=== PATIENT | male | born 1955 | race Caucasian/White ===

== ENCOUNTER 2021-08-05 08:20 | Outpatient (CLI) | payer MEDICAID, SELFPAY ==
--- NOTE | 2021-08-05 08:25 | USCV_ITS ---
Fredrick Nathan Age: 65 Gender: M : 1955 Exam Date: 08/05/2021 08:53 Ordering Phys: Keyla Baldwin Technologist: Hardik Navarro [place] [facility] [place]ication: dyspnea on exertion/ bilateral lower extremity edema. BP: 142 / 100 HR: 116 Rhythm: Sinus Technical Quality: Adequate MEASUREMENTS (Male / Female) Normal Values 2D ECHO LV Diastolic Diameter PLAX 4.2 cm 4.2 - 5.9 / 3.9 - 5.3 cm LV Systolic Diameter PLAX 3.9 cm IVS Diastolic Thickness 0.7 cm 0.6 - 1.0 / 0.6 - 0.9 cm IVS Systolic Thickness 0.8 cm LVPW Diastolic Thickness 2.0 cm 0.6 - 1.0 / 0.6 - 0.9 cm LVPW Systolic Thickness 1.9 cm LVOT Diameter 2.0 cm LV Ejection Fraction 2D Teich 14.2 % LV Ejection Fraction MOD 2C 11.6 % LV Ejection Fraction 2C AL 15.6 % LA Diameter 3.1 cm LA Width 3.1 cm LA Height 4.7 cm RA Width 5.2 cm RA Height 4.4 cm Aorta at Sinotubular Diameter 2.3 cm M-MODE Aortic Annulus Diameter 2.7 cm LA Ao Ratio MM 1.2 DOPPLER AV Peak Velocity 129.0 cm/s LVOT Peak Velocity 79.3 cm/s AV Area Cont Eq vti 1.7 cm squared AV Area Cont Eq pk 2.0 cm squared TR Peak Velocity 393.4 cm/s TR Peak Gradient 61.9 mmHg TR Mean Velocity 291.7 cm/s TR Mean Gradient 37.8 mmHg TR Velocity Time Integral 116.7 cm Right Atrial Pressure 3.0 mmHg Pulmonary Artery Systolic Pressu 64.9 mmHg RV Acceleration Time 0.1 s RV Ejection Time 0.2 s RV AcT/ET 0.3 FINDINGS Left Ventricle Diffuse hypokinesia of the left ventricle with ejection fraction around 15% Right Ventricle Moderately dilated left ventricle with moderately depressed ejection fraction Right Atrium Mildly increased right atrial size. Left Atrium Normal left atrial size. Mitral Valve Thickened mitral valve. Trace mitral valve regurgitation. Aortic Valve Thickened aortic valve. Trace aortic valve regurgitation. Tricuspid Valve Thickened tricuspid annulus.mild tricuspid valve regurgitation. Pulmonary hypertension with an estimated pulmonary artery peak systolic pressure of 62 mmHg Pulmonic Valve Trace pulmonary valve regurgitation. Pericardium No pericardial effusion. Aorta Normal aortic annulus size. CONCLUSIONS Diffuse hypokinesia of the left ventricle with ejection fraction around 15%. Moderately dilated left ventricle with moderately depressed ejection fraction. Mildly increased right atrial size. Thickened mitral valve. Trace mitral valve regurgitation. Thickened aortic valve. Trace aortic valve regurgitation. Thickened tricuspid annulus. Mild tricuspid valve regurgitation. Pulmonary hypertension with an estimated pulmonary artery peak systolic pressure of 62 mmHg. Trace pulmonary valve regurgitation. No previous study is available for comparison. Keyla Baldwin's office will be informed about the finding Dr Philip Gutiérrez MD [facility] (Electronically Signed) Final Date: 06 August 2021 07:07 S
== END 2021-08-05 08:21 | disposition home or self-care (01) ==
LOC: RAD 08:23
PROVIDERS: PCP Family Medicine; Visit Provider Registered Nurse
DX: R60.0 Localized edema (principal); R06.09 Other forms of dyspnea; I08.3 Combined rheumatic disorders of mitral, aortic and tricuspid valves; I27.20 Pulmonary hypertension, unspecified
CPT/HCPCS: 93306

== ENCOUNTER → 2023-05-27 13:05 | Outpatient (BNVA) | payer MEDICARE, MEDICAID, SELFPAY | PROVIDERS: PCP Family Medicine; Visit Provider Surgery | DX: Z95.828 Presence of other vascular implants and grafts (principal) | CPT/HCPCS: 99204 ==

== ENCOUNTER 2023-06-01 10:19 | Day surgery (SDC) | payer MEDICARE, MEDICAID, SELFPAY ==
[2023-06-01 10:34] VITALS: BP 110/71; PULSE 125; RESP 20; TEMP 36.4; O2SAT 90; BMI 21.9
--- NOTE | 2023-06-01 10:42 | SC_ITS ---
WS: [id number] C-ARM RADIOGRAPHS CHEST; 2 IMAGES HISTORY: surgery COMPARISON: None available. Intraoperative imaging during Mediport placement RIGHT IJ. IMPRESSION: Intraoperative imaging during Mediport placement.
[2023-06-01] MEDS: sodium chloride 0.9% 1,000 ML 30 ML IV (10:48)
--- NOTE | 2023-06-01 10:48 | P.HPUD_ITS ---
Surgery/Procedure H&P Update DATE OF PROCEDURE: June 01, 2023 DATE H&P PERFORMED: 05/27/23 H&P UPDATE INFORMATION: I have reviewed H&P completed within last 30 days, I have examined patient prior to procedure, No changes to prior documentation and H&P is in [facility] EMR on date indicated PREOP DIAGNOSIS: Lung Cancer PLANNED PROCEDURE: Operation Date: 06/01/23 12:00 Proposed Procedures p [id number] port placement C34.90(Not Applicable) - Cortez Beltrán MD
--- NOTE | 2023-06-01 10:57 | ECG_ITS ---
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 Measurements Intervals [place] Rate: 124 P: 94 [place]: 228 QRS: 117 QRSD: 181 T: 58 QT: 338 QTc: 487 Interpretive Statements SINUS TACHYCARDIA WITH FIRST DEGREE AV BLOCK RIGHT BUNDLE BRANCH BLOCK [120+ ms QRS DURATION, UPRIGHT V1, 40+ ms S IN I/aVL/V4/V5/V6] Nonspecific ST changes No previous ECG available for comparison Electronically Signed On 06-01-2023 14:31:00 SCRIPT EDITOR by Rigo Chen M.D. [id number]
--- NOTE | 2023-06-01 11:20 | ANES.PREANE2 ---
Pre-Anesthetic Assessment Height/Weight: Height 1.73 m Weight 65.317 kg Temp Pulse Resp BP Pulse Ox O2 Del Method O2 Flow Rate 97.5 F L 125 H 20 H 110/71 90 Nasal Cannula 3 06/01/23 10:34 06/01/23 10:34 06/01/23 10:34 06/01/23 10:34 06/01/23 10:34 06/01/23 10:34 06/01/23 10:34 Preop Diagnosis: Lung Cancer Operation Date: 06/01/23 12:00 Proposed Procedures p [id number] port placement C34.90(Not Applicable) - Cortez Beltrán MD Familial anesthetic complications: none Was Beta Zurdo taken within 24 hours: Yes Was Clonidine taken within 24 hours: N/A Last intake: Intake Last Liquid Date 05/31/23 Last Liquid Time 21:00 Last Solid Date 05/31/23 Last Solid Time 21:00 Social Tobacco and No alcohol Exam alert and oriented x 3 Tachy, RBBB Airway Submandibular: within normal limits Cervical ROM: within normal limits Mallampati: Class II Dentition: false Pulmonary Chronic Obstructive Pulmonary Disease Lung CA, Home O2 3L CV/HEM Coronary Artery Disease, Congestive Heart Failure (EF 15%), Hypertension (PHTN) and Murmur CONCLUSIONS ?Diffuse hypokinesia of the left ventricle with ejection fraction ?around 15%. ?Moderately dilated left ventricle with moderately depressed ?ejection fraction. ?Mildly increased right atrial size. ?Thickened mitral valve. Trace mitral valve regurgitation. ?Thickened aortic valve. Trace aortic valve regurgitation. ?Thickened tricuspid annulus. ?Mild tricuspid valve regurgitation.? Pulmonary hypertension with ?an estimated pulmonary artery peak systolic pressure of 62 mmHg. ?Trace pulmonary valve regurgitation. ?No previous study is available for comparison. ?Keyla Baldwin's office will be informed about the finding ?Dr Philip Gutiérrez MD [facility] ?(Electronically Signed) ?Final Date:? ? ? 06 August 2021 GI Gastroesophageal Reflux Disease Metabolic Hyperlipidemia Anesthetic Plan ASA status: 4 Anesthesia: MAC Medications/Allergies Home Medications Medication Instructions Recorded Confirmed Last Taken Type albuterol sulfate 2.5 mg/3 mL 2.5 mg inhalation Q4H PRN Wheezing 08/12/21 06/01/23 05/31/23 History (0.083 %) solution for nebulization furosemide 20 mg tablet (Lasix) 20 mg PO DAILY 08/12/21 06/01/23 05/31/23 History metoprolol succinate 25 mg 12.5 mg PO DAILY #15 tabs 08/12/21 06/01/23 06/01/23 Rx tablet,extended release 24 hr sildenafil 100 mg tablet (Viagra) 100 mg PO DAILY PRN sexual 08/12/21 06/01/23 Unknown History dysfunction sacubitril 24 mg-valsartan 26 mg 1 tab PO BID #60 tabs 02/19/22 06/01/23 05/31/23 Rx tablet (Entresto) apixaban 5 mg tablet (Eliquis) 5 mg PO BID 05/21/23 05/31/23 05/29/23 History atorvastatin 40 mg tablet 40 mg PO DAILY 05/21/23 06/01/23 05/31/23 History empagliflozin 10 mg tablet 10 mg PO DAILY 05/21/23 06/01/23 05/31/23 History (Jardiance) fluticasone fur. 100 mcg-umeclid 1 inh inhalation DAILY 05/21/23 06/01/23 05/31/23 History 62.5 mcg-vilant 25 mcg inhalat.powder (Trelegy Ellipta) omeprazole 20 mg capsule,delayed 20 mg PO DAILY 05/21/23 06/01/23 05/31/23 History release lorazepam 1 mg tablet 0.5 - 1 mg PO Q6H PRN Severe 05/31/23 06/01/23 05/31/23 Rx Nausea #30 tabs prochlorperazine maleate 10 mg 10 mg PO Q4H PRN Mild Nausea #30 05/31/23 06/01/23 05/31/23 Rx tablet (Compazine) tabs Allergies Allergy/AdvReac Type Severity Reaction Status Date / Time codeine Allergy Unknown Unknown Verified 05/31/23 14:47 penicillin G Allergy Unknown unknown Verified 05/31/23 14:47 Current Medications Generic Name Dose Route Start Last Admin Trade Name Freq PRN Reason Stop Dose Admin Sodium Chloride 1,000 mls @ 30 mls/hr 06/01/23 10:30 06/01/23 10:48 Sodium Chloride 0.9% IV 06/02/23 10:29 30 mls/hr .Q24H MONTY Administration PFSH Anesthesia Medical History CHF (congestive heart failure), NYHA class III COPD (chronic obstructive pulmonary disease) Emphysema lung Erectile dysfunction Pulmonary hypertension Squamous cell carcinoma of lung Surgical History S/P hip replacement Social History Smoking and tobacco/nicotine status: former use of tobacco/nicotine Quit status (tobacco/nicotine): has quit using Year quit tobacco: Former quit date comment: smoked 20-30 years Alcohol intake: current Alcohol intake frequency: 0-2 Drinks per Day Alcohol type: hard liquor Substance/Drug Use: current Substance/Drug use frequency: few times a week Data Anesthesia Cardiac Studies: Echocardiogram 08/05/21
[2023-06-01] MEDS: HYDROmorphone 1 mg/mL INJ 1 mL 0.5 MG IVP (11:46)
[2023-06-01] MEDS: vancomycin 1,000 MG in sodium chloride 0.9% 250 ML 250 MG IV (12:20)
[2023-06-01] MEDS: lidocaine-epi 2% 20 mL INJ INJECTION (12:52)
[2023-06-01] MEDS: heparin, porcine 1,000 unit/mL INJ 10 mL 6000 UNIT IRRIGATION (12:53)
--- NOTE | 2023-06-01 13:19 | PM.OP ---
Operative Report Date of procedure: June 01, 2023 Pre-op diagnosis: Lung cancer Post-op diagnosis: Same Procedure done: Insertion of right IJ Port-A-Cath Implants: Bard Port-A-Cath Surgeon: Cortez Beltrán MD Dot Compliance Coordinator: DELMAR OR Staff Estimated blood loss: 10 Complications: None Findings: Normal vascular anatomy Brief History: 67-year-old male with lung cancer who presents for Port-A-Cath placement for initiation of chemotherapy. After discussion of the risk and benefits as documented in my preop note we decided to proceed with Port-A-Cath placement. Procedure: Patient was brought into the OR, he was placed in the supine position, sedation was given. The neck and upper chest was prepped and draped in the usual sterile fashion. A timeout was conducted. The right IJ vein was identified with ultrasound, local anesthesia was infiltrated around the vein, I then proceeded to cannulate the vein with ultrasound guidance, the needle tip was seen entering the vein and immediate return of blood was noted. A guidewire was advanced at needle was removed, the guidewire position was confirmed with ultrasound and also with fluoroscopy. The wire was then clamped to the drapes and my attention was placed on the chest. Local anesthesia: Manager Of Creative Services on the upper chest and also on an area connecting the right upper chest to the right neck wire insertion site. At 3 cm incision was made in the right upper chest and was deepened to the subcutaneous tissue, electrocautery was then used to create a subcutaneous pocket above the level of the pectoralis fascia. I then proceeded to create a tunnel from the chest wound to the neck using a hemostat. At the level of the catheter insertion site on the neck I proceeded to create a 5 mm incision and deepened this incision to allow for easy passage of the dilator. I then verified hemostasis was achieved. Placed the Port-A-Cath port in the pocket and tunneled the catheter to the neck using the provided tunneler. I then proceeded to advance a peel-off sheath over the wire under direct fluoroscopy guidance, the wire and introducer were removed leaving the peel off sheath. the catheter was cut to lenght. I then advanced the catheter through the peel off sheat and removed the sheath leaving the catheter in place. Fluoroscopy confirmed adequate positioning of the catheter. I accessed the catheter and obtained adequate blood return, I then flushed with the catheter with a week heparin mix and then hep-locked the catheter. I then proceeded to fix the port to the pectoralis fascia with a #3-0 Vicryl, the wound was closed in layers using #3-0 Vicryl for the subcutaneous tissue and #4 Monocryl for the skin, Dermabond was applied. 1 final fluoroscopic image was obtained to ensure adequate position and after we finished closing. At the end of the procedure all counts were correct, the patient tolerated well the procedure and transferred to the PACU in stable condition.
[2023-06-01 13:20] VITALS: BP 148/108; PULSE 114; RESP 18; TEMP 36.4; O2SAT 99
[2023-06-01 13:30] VITALS: BP 141/106; PULSE 114; RESP 18; O2SAT 98
[2023-06-01 13:35] VITALS: BP 132/112; PULSE 116; RESP 18; O2SAT 98
--- NOTE | 2023-06-01 13:44 | ANE.PACU2 ---
Inpatient post-anesthesia follow up: Airway intact: Yes Vital signs: Temperature 97.6 F Pulse Rate 116 Respiratory Rate 18 Blood Pressure 132/112 Pulse Oximetry 98 Oxygen Delivery Me thod Simple Mask Oxygen Flow Rate 6 Fraction of Inspir ed Oxygen Hydration adequate: Yes Nausea and vomiting: No Pain level: 2 Mental status: Baseline
[2023-06-01 13:45] VITALS: BP 161/103; PULSE 119; RESP 18; TEMP 36.4; O2SAT 92
[2023-06-01 14:05] VITALS: BP 155/92; PULSE 121; RESP 18; O2SAT 91
[2023-06-01 14:30] LABS: Glucose Point of Care 107 mg/dL (70-110)
== END 2023-06-01 14:36 | disposition home or self-care (01) ==
PROVIDERS: PCP Family Medicine; Visit Provider Surgery
PROC: (CPT 36561; principal; 2023-06-01 12:00)
DX: C18.9 Malignant neoplasm of colon, unspecified (principal); J44.9 Chronic obstructive pulmonary disease, unspecified; Z99.81 Dependence on supplemental oxygen; I25.10 Atherosclerotic heart disease of native coronary artery without angina pectoris; I11.0 Hypertensive heart disease with heart failure; I50.9 Heart failure, unspecified; K21.9 Gastro-esophageal reflux disease without esophagitis; E78.5 Hyperlipidemia, unspecified; Z87.891 Personal history of nicotine dependence
CPT/HCPCS: 36561; 36416; 76000; 77001; 82962; 93005; 93010; C1788; J1170; J1644; J2371; J2704; J3010; J3370; J7030; J7050

== ENCOUNTER 2023-06-09 10:59 | Oncology outpatient (recurring) (ONCR) | payer MEDICARE, MEDICAID, SELFPAY ==
[2023-05-21 12:29] LABS: Basophils % 0.5 %; Eosinophils # 0.1 10^3/uL (0.0-0.8); Eosinophils % 1.3 %; Hematocrit 49.5 % (37-53); Lymphocytes # 1.5 10^3/uL (0.8-4.8); Lymphocytes % 18.9 %; Mean Corpuscular HGB Conc 31.5 g/dL (30-55); Mean Corpuscular Hemoglobin 31.5 pg (27-33); Mean Corpuscular Volume 99.8 fl (82-101); Mean Platelet Volume 12.5 fL (7.4-10.4); Monocytes # 0.9 10^3/uL (0.2-0.9); Monocytes % 11.7 %; Neutrophils # 5.22 10^3/uL (1.8-7.7); Neutrophils % 67.3 %; Nucleated Red Blood Cells % 0 %; Platelet Count 144 10^3/cmm (157-399); Red Blood Count 4.96 10^6/uL (3.85-5.65); Red Cell Distribution Width 13.2 % (12.1-15.1); White Blood Count 7.76 10^3/uL (3.29-11.43)
--- NOTE | 2023-06-02 10:27 | ONCRAD TMN_ITS ---
Radiation Oncology Weekly Treatment Management Patient: Fredrick Nathan MR#: [id number] : 1955> Attending Physician: Pavan Poole Date of Service: 06/02/2023 Referring Physician(s) : Compa Jack MD Diagnosis: Lung, right, squamous cell carcinoma, stage T2N2M0 Radiotherapy to date: Course: Lung 2022, Treatment Site: RT Lung, Ref. ID: [id number], Energy: 6X, Dose/Fx (cGy): 200, #Fx: , Dose Correction (cGy): 0, Total Dose (cGy): 600, Start Date: 05/31/2023, Elapsed Days: 2 Reason for visit: The patient is being seen today as part of their regularly scheduled weekly on treatment visits to assess for acute toxicities from radiotherapy. Review of Systems: He continues on O2 at 3 L/min 24 hours a day. He is tolerating that well and it relieves his dyspnea. He has no troublesome cough, hemoptysis, or sputum production. His appetite is good. He has no unusual pain. Vital Signs: Performed on 06/02/2023 8:41 AM BMI - 22.503 kg/m2, Height - 68 in, Weight - 148 lbs, Temperature - 96.4 f, Pulse - 81 /min, Respiration - 18 /min, O2 Sat - 83 % (low), Pain - 0, Fatigue - 0 and BP - 86/ 55 mm(hg)(low). Physical Exam: Alert, oriented, no distress. No cervical or supraclavicular lymphadenopathy. Lungs have greatly diminished breath sounds bilaterally. No Rales, rhonchi, or wheezes. Heart rhythm regular. Imaging: Radiation therapy imaging related to accurate target localization (i.e. KV, MV and CBCT) was reviewed. Appropriate changes, if any, were made to ensure treatment accuracy. Plan: Continue treatment per plan. Chemotherapy begins Wednesday. Signed by: Pavan Poole 06/02/2023 10:26:28 AM
[2023-06-07 07:29] VITALS: BP 111/75; PULSE 126; RESP 20; TEMP 36.2; O2SAT 83
[2023-06-07 07:46] LABS: Basophils % 0.7 %; Eosinophils # 0.1 10^3/uL (0.0-0.8); Eosinophils % 1.5 %; Hematocrit 47.1 % (37-53); Lymphocytes # 1.3 10^3/uL (0.8-4.8); Lymphocytes % 20.7 %; Mean Corpuscular HGB Conc 29.7 g/dL (30-55); Mean Corpuscular Hemoglobin 31.4 pg (27-33); Mean Corpuscular Volume 105.6 fl (82-101); Mean Platelet Volume 11.9 fL (7.4-10.4); Monocytes # 0.7 10^3/uL (0.2-0.9); Monocytes % 12.1 %; Neutrophils # 3.98 10^3/uL (1.8-7.7); Neutrophils % 64.7 %; Nucleated Red Blood Cells % 0 %; Platelet Count 125 10^3/cmm (157-399); Red Blood Count 4.46 10^6/uL (3.85-5.65); Red Cell Distribution Width 12.9 % (12.1-15.1); White Blood Count 6.14 10^3/uL (3.29-11.43)
[2023-06-07 08:06] LABS: Alanine Aminotransferase 21 U/L (0-41); Albumin Level 3.7 g/dL (3.5-5.2); Alkaline Phosphatase 77 U/L (40-130); Anion Gap 6.7 (5-19); Aspartate Amino Transferase 24 U/L (0-40); Blood Urea Nitrogen 23 mg/dL (8-23); Calcium 9.6 mg/dL (8.5-10.5); Chloride 94 mmol/L (98-107); Globulin 2.7 g/dL (1.3-4.6); Glomerular Filtration Rate 84.4 mL/min (90-130); Glucose 142 mg/dL (65-115); Osmolality Calculated 294 mOsm/kg (285-295); Potassium 4.7 mmol/L (3.5-5.1); Sodium 139 mmol/L (136-145); Total Bilirubin 0.3 mg/dL (0.15-1.2); Total Protein 6.4 g/dL (6.6-8.7)
[2023-06-07 08:27] LABS: Slide Review Slide Review Perform
[2023-06-07 08:41] LABS: Carbon Dioxide 43 mmol/L (22-29)
[2023-06-07] MEDS: sodium chloride 0.9% 250 ML 75 ML IV (10:03)
[2023-06-07] MEDS: acetaminophen 325 mg Tablet 650 MG PO (10:05)
[2023-06-07] MEDS: diphenhydrAMINE 50 mg/mL SDV 1mL 25 MG IVP (10:05)
[2023-06-07] MEDS: famotidine 20 mg/2 mL INJ IVP (10:08)
[2023-06-07] MEDS: palonosetron 0.25 mg/5 mL SDV IVP (10:17)
[2023-06-07] MEDS: dexamethasone 20 MG in sodium chloride 0.9% 50 ML 188 MG IV (10:17)
[2023-06-07] MEDS: PACLitaxeL 90 MG in sodium chloride 0.9%(non-DEHP) 250 ML 265 MG IV (10:44)
[2023-06-07] MEDS: CARBOplatin 210 MG in sodium chloride 0.9% 500 ML 521 MG IV (12:10)
[2023-06-07 14:58] VITALS: BP 97/62; PULSE 121; TEMP 36.5; O2SAT 82
--- NOTE | 2023-06-08 11:36 | ONCRAD TMN_ITS ---
Radiation Oncology Weekly Treatment Management Patient: Fredrick Nathan MR#: [id number] : 1955 Attending Physician: Thee De Santiago Date of Service: 06/08/2023 Referring Physician(s) : Compa Jack MD Diagnosis: Lung, right, squamous cell carcinoma, stage T2N0M0 Radiotherapy to date: Course: Lung 2022, Treatment Site: RT Lung, Ref. ID: [id number], Energy: 6X, Dose/Fx (cGy): 200, #Fx: , Dose Correction (cGy): 0, Total Dose (cGy): 1,000, Start Date: 05/31/2023, Elapsed Days: 8 Reason for visit: The patient is being seen today as part of their regularly scheduled weekly on treatment visits to assess for acute toxicities from radiotherapy. Review of Systems: Patient continues on O2 24 hours daily. He denies worsening shortness of breath, cough, hemoptysis, or sputum production. His appetite remains good. Vital Signs: Performed on 06/08/2023 11:07 AM BMI - 23.385 kg/m2 (high), Height - 68 in, Weight - 153.8 lbs, Temperature - 97.1 f, Pulse - 113 /min (high), Respiration - 18 /min, O2 Sat - 96 %, Pain - 0, Fatigue - 0 and BP - 101/ 64 mm(hg)(/low). Physical Exam: Alert and oriented male appearing his stated age. Oxygen by nasal cannula. Patient ambulatory. Imaging: Radiation therapy imaging related to accurate target localization (i.e. KV, MV and CBCT) was reviewed. Appropriate changes, if any, were made to ensure treatment accuracy. Plan: Continue prescribed treatment. Patient is receiving concurrent chemotherapy. He has been instructed to notify us if he develops any changes in his breathing, develops fevers, chills, or changes in his sputum production. Signed by: Thee De Santiago 06/08/2023 11:34:54 AM
== END 2023-06-09 23:59 | disposition home or self-care (01) ==
PROVIDERS: Internal Medicine; PCP Family Medicine; Visit Provider Radiology Radiation Oncology
DX: Z51.0 Encounter for antineoplastic radiation therapy (principal); C34.91 Malignant neoplasm of unspecified part of right bronchus or lung
CPT/HCPCS: 36415; 77300; 77301; 77334; 77338; 77386; 77417; 77470; 80053; 85025; 96367; 96375; 96413; 96417; 99024; 99205; 99215; J1100; J1200; J1642; J2469; J3490; J7040; J7050; J9045; J9267

== ENCOUNTER 2023-06-10 11:04 | Oncology outpatient (recurring) (ONCR) | payer MEDICARE, MEDICAID, SELFPAY | END 2023-06-10 23:59 | disposition home or self-care (01) | LOC: ONCMED 11:05 | PROVIDERS: PCP Family Medicine; Visit Provider Radiology Radiation Oncology | DX: Z51.0 Encounter for antineoplastic radiation therapy (principal); C34.90 Malignant neoplasm of unspecified part of unspecified bronchus or lung; C34.91 Malignant neoplasm of unspecified part of right bronchus or lung; Z99.81 Dependence on supplemental oxygen; Z87.891 Personal history of nicotine dependence; I50.9 Heart failure, unspecified; J44.9 Chronic obstructive pulmonary disease, unspecified; Z79.899 Other long term (current) drug therapy | CPT/HCPCS: 77014; 77336; 77386 ==

== ENCOUNTER 2023-06-10 21:26 | Inpatient (IN) | payer MEDICARE, MEDICAID, SELFPAY ==
[2023-06-10] VITALS (7 sets, daily range): BP systolic 110–138; BP diastolic 70–84; PULSE 124–134; RESP 20–23; TEMP 36.7; O2SAT 88–96; BMI 20.9
--- NOTE | 2023-06-10 21:27 | XRR_ITS ---
PROCEDURE INFORMATION: Exam: XR Chest Exam date and time: 06/10/2023 9:44 PM Age: 67 years old Clinical indication: Shortness of breath; Additional info: SOB TECHNIQUE: Imaging protocol: Radiologic exam of the chest. Views: 1 view. COMPARISON: CT angio chest PE protcl [id number] 03/08/2023 12:24 AM FINDINGS: Tubes, catheters and devices: Right-sided Port-A-Cath. Lungs: See Heart/Mediastinum finding. Pleural spaces: Unremarkable. No pleural effusion. No pneumothorax. Heart/Mediastinum: Cardiomegaly and pulmonary vascular congestion. Bones/joints: Unremarkable. XR/XR chest 1V portable [id number] IMPRESSION: Cardiomegaly and pulmonary vascular congestion.
--- NOTE | 2023-06-10 21:30 | ECG_ITS ---
[facility] Test Date: 2023-06-10 Pat Name: Fredrick Nathan Department: Room: Gender: Male Receipt And Report Clerk: : 1955 Requested By: Mercedez Smith Order Number: [id number] Dilip MD: Norma Reeder M.D. Measurements Intervals [place] Rate: 129 P: 97 [place]: 148 QRS: 108 QRSD: 177 T: 37 QT: 329 QTc: 483 Interpretive Statements SINUS TACHYCARDIA INDETERMINATE AXIS RIGHT BUNDLE BRANCH BLOCK [120+ ms QRS DURATION, UPRIGHT V1, 40+ ms S IN I/aVL/V4/V5/V6] SEPTAL MYOCARDIAL INFARCTION , PROBABLY OLD [40+ ms Q WAVE IN V1/V2] Compared to ECG 06/01/2023 10:57:22 Indeterminate axis now present Myocardial infarct finding now present First degree AV block no longer present ST (T wave) deviation no longer present Electronically Signed On 06-12-2023 6:07:59 AUTOMATIC NAILING MACHINE FEEDER by Norma Reeder M.D. [id number]
--- NOTE | 2023-06-10 21:32 | W.ED.CHESTPA ---
HPI - Chest Pain General: Chief Complaint: Chest Pain Stated Complaint: Chest Pain Time Seen by Provider: 06/10/23 21:29 Source: patient and EMS Mode of arrival: EMS Limitations: no limitations History of Present Illness: 67-year-old male who has a history of COPD CHF along with lung cancer states that tonight he started having some chest pain is also had some shortness of breath patient was hypoxic here on his home 2 L oxygen had to turn his oxygen up here states he took a nitro and he is currently pain-free denies any fevers he had his first radiation treatment yesterday. Associated symptoms: Reports dyspnea; Deny abdominal pain, fever(s), nausea or vomiting Review of Systems Const: Denies: fever(s), chills, body aches or change in appetite Eyes: Denies: blurry vision or eye discomfort ENMT: Denies: throat pain or dental pain Card: Reports: chest pain Resp: Reports: dyspnea GI: Denies: abdominal pain, nausea, vomiting or diarrhea : Denies: dysuria Musc: Denies: neck pain or back pain Skin/Breast: Denies: rash Neuro: Denies: headache(s) PFSH ED PFSH: Medical History Squamous cell carcinoma of lung Pulmonary hypertension Erectile dysfunction Emphysema lung COPD (chronic obstructive pulmonary disease) CHF (congestive heart failure), NYHA class III Surgical History S/P hip replacement Social History Smoking and tobacco/nicotine status: former use of tobacco/nicotine Quit status (tobacco/nicotine): has quit using Year quit tobacco: Former quit date comment: smoked 20-30 years Alcohol intake: current Alcohol intake frequency: 0-2 Drinks per Day Alcohol type: hard liquor Substance/Drug Use: current Substance/Drug use frequency: few times a week Physical Exam Const: COMMON NORMALS: patient oriented x3 HENMT: COMMON NORMALS: normocephalic and atraumatic HEAD & SCALP: normocephalic and atraumatic Eye: COMMON NORMALS: Equal, round and reactive pupils present and EOMs intact bilaterally PUPIL: Yes Equal, round and reactive pupils present Neck/C-Spine: COMMON NORMALS: full ROM and supple Chest: COMMONS NORMALS: normal inspection of the chest Resp: COMMON NORMALS: No retractions AUSCULTATION: wheezes Cardio: COMMON NORMALS: regular rhythm and No murmurs present (Cardio) RATE: tachycardic RHYTHM: regular rhythm GI: COMMON NORMALS: Normal to inspection, nondistended, normoactive bowel sounds present, Soft to palpation, non-tender and no masses PALPATION: Yes Soft to palpation Extremity: COMMON NORMALS: normal to inspection and full ROM Neuro: COMMON NORMALS: patient oriented x3, moves all extremities and no focal motor deficits Psych: COMMON NORMALS: mental status grossly normal, Normal thought process present and cooperative THOUGHT PROCESS: Normal thought process present Skin: COMMON NORMALS: no rashes or lesions noted and no wounds GENERAL SKIN EXAM: no rashes or lesions noted Course Vital Signs: Vital signs: Vital Signs Temperature 98.0 F 06/10/23 21:31 Pulse Rate 124 H 06/10/23 23:34 Respiratory Rate 20 H 06/10/23 23:34 Blood Pressure 138/84 06/10/23 23:34 Pulse Oximetry 89 L 06/10/23 23:34 Oxygen Delivery Me thod Nasal Cannula 06/10/23 23:34 Oxygen Flow Rate 5 06/10/23 23:34 Fraction of Inspir ed Oxygen 45 06/10/23 22:35 MDM - Chest Pain Medical Decision Making Patient presents here with chest pain along with shortness of breath he is found to be in hypercapnic respiratory failure likely from his COPD his chest pain is resolved here her troponin was normal EKG showed no acute changes patient placed on BiPAP admitted to cardiac stepdown unit Medical Records I reviewed the patient's medical records. Lab Data I reviewed the patient's lab results. 06/10/23 21:42 06/10/23 21:42 Radiology Impressions Chest X-Ray 06/10/23 21:27 IMPRESSION: Cardiomegaly and pulmonary vascular congestion. Chest CTA 06/10/23 22:12 IMPRESSION: 1. Negative for pulmonary embolus. 2. Bilateral adrenal hypertrophy suspected. 3. Small to moderate right pleural effusion. 4. Emphysematous changes. 5. Right hilar 6.8 cm somewhat confluent masslike airspace opacity with some associated airspace opacification in the right upper lobe, concerning for a malignant process, please correlate with history and consider tissue correlation. 6. Cardiomegaly. Laboratory Results WBC 5.69 10^3/uL (3.29-11.43) 06/10/23 21:42 RBC 4.39 10^6/uL (3.85-5.65) 06/10/23 21:42 Hgb 13.90 g/dL (11.27-16.99) 06/10/23 21:42 Hct 45.9 % (37-53) 06/10/23 21:42 MCV 104.6 fl (82-101) H 06/10/23 21:42 MCH 31.7 pg (27-33) 06/10/23 21:42 MCHC 30.3 g/dL (30-55) 06/10/23: RDW 13.0 % (12.1-15.1) 06/10/23 21:42 Plt Count 96 10^3/cmm (157-399) L 06/10/23 21:42 MPV 12.9 fL (7.4-10.4) H 06/10/23 21:42 Neut % (Auto) 77.1 % 06/10/23 21:42 Lymph % (Auto) 13.9 % 06/10/23 21:42 [place] % (Auto) 7.7 % 06/10/23 21:42 Eos % (Auto) 0.7 % 06/10/23 21:42 Baso % (Auto) 0.2 % 06/10/23:42 Neut # (Auto) 4.39 10^3/uL (1.8-7.7) 06/10/23 21:42 Lymph # (Auto) 0.8 10^3/uL (0.8-4.8) 06/10/23 21:42 [place] # (Auto) 0.4 10^3/uL (0.2-0.9) 06/10/23:42 Eos # (Auto) 0.0 10^3/uL (0.0-0.8) 06/10/23 21:42 Baso # (Auto) 0.0 10^3/uL (0.0-0.1) 06/10/23:42 Nucleated RBC % (auto) 0 % 06/10/23 21:42 Nucleated RBCs # 0.0 /100WBC 06/10/23 21:42 PT 16.00 SECONDS (12.1-14.9) H 06/10/23 21:42 INR 1.24 (0.8-1.2) H 06/10/23 21:42 D-Dimer 0.97 ug/mLFEU (0-0.59) H 06/10/23 21:42 Specimen Type Arterial 06/10/23 22:15 Sample Site Radial, right 06/10/23 22:15 ABG pH 7.29 (7.35-7.45) L 06/10/23 22:15 ABG pCO2 87.6 mmHg (35-45) H* 06/10/23 22:15 ABG pO2 64.9 mmHg (80.0-100.0) L 06/10/23 22:15 ABG HCO3 42.2 mmol/L (22-26) H 06/10/23 22:15 ABG Base Excess 11.7 mmol/L (-2.0-2.0) H 06/10/23 22:15 Fawad Test Pos 06/10/23 22:15 Hematocrit 41.3 % (42-52) L 06/10/23 22:15 O2 Delivery Device Nc 06/10/23 22:15 O2 Liters/Min 5.0 % 06/10/23 22:15 Cost Reduction Engineer ID [email or web address] 06/10/23 22:15 Sodium 138 mmol/L (136-145) 06/10/23 21:42 Potassium 5.7 mmol/L (3.5-5.1) H 06/10/23 21:42 Chloride 93 mmol/L (98-107) L 06/10/23 21:42 Carbon Dioxide 42 mmol/L (22-29) H* 06/10/23 21:42 Anion Gap 8.7 (5-19) 06/10/23 21:42 BUN 31 mg/dL (8-23) H 06/10/23 21:42 Creatinine 0.7 mg/dL (0.7-1.2) 06/10/23 21:42 GFR Calculation 112.8 mL/min (90-130) 06/10/23 21:42 Glucose 107 mg/dL (65-115) 06/10/23 21:42 Calculated Osmolality 293 mOsm/kg (285-295) 06/10/23 21:42 Calcium 9.4 mg/dL (8.5-10.5) 06/10/23 21:42 Total Bilirubin 0.3 mg/dL (0.15-1.2) 06/10/23 21:42 AST 19 U/L (0-40) 06/10/23 21:42 ALT 21 U/L (0-41) 06/10/23 21:42 Alkaline Phosphatase 66 U/L (40-130) 06/10/23 21:42 Troponin T Baseline 28 ng/L (0-15) H 06/10/23 21:42 NT-Pro-B Natriuret Pep 3287 pg/mL (0-125) H 06/10/23 21:42 Total Protein 6.3 g/dL (6.6-8.7) L 06/10/23 21:42 Albumin 4.0 g/dL (3.5-5.2) 06/10/23 21:42 Globulin 2.3 g/dL (1.3-4.6) 06/10/23 21:42 Procalcitonin 0.06 ng/mL (0-0.5) 06/10/23 21:42 All radiology interpretation(s) finalized by discharge EKG Data EKG 1: I personally reviewed and interpreted this EKG as follows: EKG interpretation date: 06/10/23 EKG interpretation time: 21:30 Interpretation: sinus tach hr [address] or t wave abnormalities qrs 177 qtc 405 Critical Care Time Critical Care Time: Critical Care Time: Yes Total Critical Care Time: 40 Attestation: The high probability of a clinically significant, sudden or life threatening deterioration of the patient's resp system(s) required my full and direct attention, intervention and personal management. The critical care time is as shown. This time is in addition to time spent performing any reported procedures but includes the following: [x] Data and vital sign review and interpretation [x] Patient assessment, examination and intervention [x] Documentation [x] Medication orders and management Discharge Plan Discharge Patient Disposition: Admitted As Inpatient Admit Provider: Citlali Dang Clinical Impression: COPD (chronic obstructive pulmonary disease), Chest pain, Acute respiratory failure with hypoxia and hypercapnia Condition: Stable Coding Level of Care Code ED Practicing Dermatologist for Chg Jaycee
[2023-06-10 21:50] LABS: Basophils % 0.2 %; Eosinophils % 0.7 %; Hematocrit 45.9 % (37-53); Lymphocytes # 0.8 10^3/uL (0.8-4.8); Lymphocytes % 13.9 %; Mean Corpuscular HGB Conc 30.3 g/dL (30-55); Mean Corpuscular Hemoglobin 31.7 pg (27-33); Mean Corpuscular Volume 104.6 fl (82-101); Mean Platelet Volume 12.9 fL (7.4-10.4); Monocytes # 0.4 10^3/uL (0.2-0.9); Monocytes % 7.7 %; Neutrophils # 4.39 10^3/uL (1.8-7.7); Neutrophils % 77.1 %; Nucleated Red Blood Cells % 0 %; Platelet Count 96 10^3/cmm (157-399); Red Blood Count 4.39 10^6/uL (3.85-5.65); White Blood Count 5.69 10^3/uL (3.29-11.43)
[2023-06-10] MEDS: ipratropium-albuterol 3 mL Neb INHALATION (21:53)
[2023-06-10] MEDS: methylPREDNISolone sod succ 125 mg/2 mL INJ IVP (21:55)
--- NOTE | 2023-06-10 21:55 | P.HP_ITS ---
Providers/Chief Complaint 2 Primary Care Provider: Delbert Webster Chief Complaint: Chest Pain History of Present Illness Fredrick Nathan is a 67 year old male with history of lung cancer, received chemotherapy on Wednesday and radiotherapy yesterday presented to hospital with chief complaint of chest pain. This chest pain started at rest around 3:30 PM, it was relieved with nitroglycerin, he is describing chest pain as pressure related sensation. He has history of COPD uses 3 L of oxygen at baseline. Does not smoke. 911 was called who brought him to the ER in the ER patient was diagnosed with A-fib RVR heart rate in 130s with normal hemodynamics he was requiring 5 to 6 L of oxygen, EKG did not show any acute infarct changes Patient was chest pain free at the time of my evaluation He has not noticed any fever, nausea, vomiting or worsening of shortness of breath Review of records reveals patient had history of left DVT he is on Eliquis, has skin cell cancer, history of congestive heart failure with reduced ejection fraction, pulmonary hypertension, Review of Systems 2 Const: Reports: chills Eyes: Denies: change in vision ENMT: Denies: throat pain Card: Reports: chest pain Resp: Reports: dyspnea GI: Denies: abdominal pain : Denies: flank pain Medications/Allergies Home Medications Medication Instructions Recorded Confirmed Last Taken Type albuterol sulfate 2.5 mg/3 mL 2.5 mg inhalation Q4H PRN Wheezing 08/12/21 06/07/23 05/31/23 History (0.083 %) solution for nebulization furosemide 20 mg tablet (Lasix) 20 mg PO DAILY 08/12/21 06/07/23 05/31/23 History metoprolol succinate 25 mg 12.5 mg (1/2 x 25 mg) PO DAILY #15 08/12/21 06/07/23 06/01/23 Rx tablet,extended release 24 hr tabs sildenafil 100 mg tablet (Viagra) 100 mg PO DAILY PRN sexual 08/12/21 06/07/23 Unknown History dysfunction sacubitril 24 mg-valsartan 26 mg 1 tab PO BID #60 tabs 02/19/22 06/07/23 05/31/23 Rx tablet (Entresto) apixaban 5 mg tablet (Eliquis) 5 mg PO BID 05/21/23 06/07/23 05/29/23 History atorvastatin 40 mg tablet 40 mg PO DAILY 05/21/23 06/07/23 05/31/23 History empagliflozin 10 mg tablet 10 mg PO DAILY 05/21/23 06/07/23 05/31/23 History (Jardiance) fluticasone fur. 100 mcg-umeclid 1 inh inhalation DAILY 05/21/23 06/07/23 05/31/23 History 62.5 mcg-vilant 25 mcg inhalat.powder (Trelegy Ellipta) omeprazole 20 mg capsule,delayed 20 mg PO DAILY 05/21/23 06/07/23 05/31/23 History release lorazepam 1 mg tablet 0.5 - 1 mg (0.5 - 1 x 1 mg) PO Q6H 05/31/23 06/07/23 05/31/23 Rx PRN Severe Nausea #30 tabs prochlorperazine maleate 10 mg 10 mg PO Q4H PRN Mild Nausea #30 05/31/23 06/07/23 05/31/23 Rx tablet (Compazine) tabs meloxicam 7.5 mg tablet 7.5 mg PO DAILY #7 tabs 06/01/23 06/07/23 Unknown Rx lidocaine-prilocaine 2.5 %-2.5 % 1 applic topical ONCE #30 grams 06/07/23 06/07/23 Unknown Rx topical cream oxygen mask #1 ea 06/07/23 06/07/23 Unknown Rx Allergies Allergy/AdvReac Type Severity Reaction Status Date / Time codeine Allergy Unknown Unknown Verified 06/07/23 08:38 penicillin G Allergy Unknown unknown Verified 06/07/23 08:38 PFSH Acute 2 PFSH: Medical History Squamous cell carcinoma of lung Pulmonary hypertension Erectile dysfunction Emphysema lung COPD (chronic obstructive pulmonary disease) CHF (congestive heart failure), NYHA class III Surgical History S/P hip replacement Social History Smoking and tobacco/nicotine status: former use of tobacco/nicotine Quit status (tobacco/nicotine): has quit using Year quit tobacco: Former quit date comment: smoked 20-30 years Alcohol intake: current Alcohol intake frequency: 0-2 Drinks per Day Alcohol type: hard liquor Substance/Drug Use: current Substance/Drug use frequency: few times a week Vitals/I&O/Wt Last Vital Signs Temp 98.0 F 06/10/23 21:31 Pulse 129 H 06/10/23 21:31 Resp 20 H 06/10/23 21:31 BP 110/72 06/10/23 21:31 Pulse Ox 88 L 06/10/23 21:31 O2 Flow Rate 5 06/10/23 21:31 Weight last 48 hrs Weight 64.41 kg Physical Exam 2 Narrative: Patient is chest pain-free at the time of evaluation Signs of heart failure present GCS 15 Nonfocal neuro exam Currently on 6 L A-fib RVR No audible stridor or wheezing Mild crackles positive Abdomen soft Pleasant and cooperative Nonfocal neuro exam Data 06/10/23 21:42 06/10/23 21:42 A&P Assessment and plan (1) Squamous cell carcinoma of lung: (2) Pulmonary hypertension: (3) Emphysema lung: (4) COPD (chronic obstructive pulmonary disease): (5) CHF (congestive heart failure), NYHA class III: (6) Unstable angina: Plan Unstable angina Serial troponin and EKG Chest pain-free at the time of my evaluation Patient is considered high risk considering EF of 15% with pulmonary hypertension He has dyspnea on exertion at baseline EKG did not show infarctive changes Acute S-CHF exacerbation Discontinue NSAIDs Clinical signs of fluid overload Continue diuresis Echo done in 2021 showed EF 15% with pulmonary hypertension Continue Lasix, changed to IV Not a candidate for LifeVest considering cancer A-fib RVR, new onset Patient is on subtherapeutic Eliquis dose We will receive AV luis miguel blocking agent, blood pressure stable Acute on chronic hypoxic hypercapnic respite failure: Start BiPAP Acute on chronic hypoxia related to CHF and underlying cancer Currently requiring 6 L, at baseline uses 3 L No active wheezing, mild crackles positive Mediport was placed recently 06/01, Mediport site does not look infected Full code Cardiac diet Use therapeutic anticoagulating agent as DVT prophylaxis and discontinue subtherapeutic Eliquis dose Attestations 2 Medical Necessity Statement*: More than 2 midnights anticipated Diagnoses Squamous cell carcinoma of lung C34.90 Pulmonary hypertension I27.20 Emphysema lung J43.9 COPD (chronic obstructive pulmonary disease) J44.9 CHF (congestive heart failure), NYHA class III I50.9 Unstable angina I20.0
[2023-06-10 22:05] LABS: INR 1.24 (0.8-1.2)
[2023-06-10 22:07] LABS: Slide Review Slide Review Perform
[2023-06-10 22:08] LABS: D Dimer 0.97 ug/mLFEU (0-0.59)
--- NOTE | 2023-06-10 22:12 | CTR_ITS ---
PROCEDURE INFORMATION: Exam: CTA Chest With Contrast Exam date and time: 06/10/2023 10:57 PM Age: 67 years old Clinical indication: Shortness of breath; Additional info: SOB TECHNIQUE: Imaging protocol: Computed tomographic angiography of the chest with contrast. Exam focused on the arteries. 3D rendering (Not supervised by radiologist): MIP and/or 3D reconstructed images were created by the technologist. Radiation optimization: All CT scans at this facility use at least one of these dose optimization techniques: automated exposure control; mA and/or kV adjustment per patient size (includes targeted exams where dose is matched to clinical indication); or iterative reconstruction. Contrast material: OMNI 350; Contrast volume: 75 ml; Contrast route: INTRAVENOUS (IV); REPORTING DATA: Count of CT and Cardiac NM exams in prior 12 months: This patient has received 3 known CTs and 0 known cardiac nuclear medicine studies in the 12 months prior to the current study. COMPARISON: CT angio chest PE protcl [id number] 03/08/2023 12:24 AM RADIATION DOSE METRICS: Total DLP (mGy-cm): 455.68 FINDINGS: Pulmonary arteries: Normal. No pulmonary emboli. Aorta: Unremarkable. No aortic aneurysm. No aortic dissection. Lungs: Emphysematous changes. Right hilar 6.8 cm somewhat confluent masslike airspace opacity with some associated airspace opacification in the right upper lobe, concerning for a malignant process, please correlate with history and consider tissue correlation. Pleural spaces: Small to moderate right pleural effusion. Heart: Cardiomegaly. Lymph nodes: Unremarkable. No enlarged lymph nodes. Adrenal glands: Bilateral adrenal hypertrophy suspected. Bones/joints: Unremarkable. No acute fracture. Soft tissues: Unremarkable. CT/CT angio chest PE protcl [id number] IMPRESSION: 1. Negative for pulmonary embolus. 2. Bilateral adrenal hypertrophy suspected. 3. Small to moderate right pleural effusion. 4. Emphysematous changes. 5. Right hilar 6.8 cm somewhat confluent masslike airspace opacity with some associated airspace opacification in the right upper lobe, concerning for a malignant process, please correlate with history and consider tissue correlation. 6. Cardiomegaly.
[2023-06-10 22:15] LABS: Troponin(5th) Baseline 28 ng/L (0-15)
[2023-06-10 22:22] LABS: ABG PH Result 7.29 (7.35-7.45); Arterial Blood Gas Hematocrit 41.3 % (42-52); Base Excess ABG 11.7 mmol/L (-2.0-2.0); Blood Gas Allen Test Pos; Blood Gas Sample Site Radial, right; Blood Gas Sample Type Arterial; HCO3 ABG 42.2 mmol/L (22-26); Oxygen Device NC; PO2 ABG 64.9 mmHg (80.0-100.0)
[2023-06-10 22:22] LABS: Alanine Aminotransferase 21 U/L (0-41); Alkaline Phosphatase 66 U/L (40-130); Anion Gap 8.7 (5-19); Aspartate Amino Transferase 19 U/L (0-40); Blood Urea Nitrogen 31 mg/dL (8-23); Calcium 9.4 mg/dL (8.5-10.5); Chloride 93 mmol/L (98-107); Globulin 2.3 g/dL (1.3-4.6); Glomerular Filtration Rate 112.8 mL/min (90-130); Glucose 107 mg/dL (65-115); NT Pro B Type Natriuretic Pept 3287 pg/mL (0-125); Osmolality Calculated 293 mOsm/kg (285-295); Potassium 5.7 mmol/L (3.5-5.1); Sodium 138 mmol/L (136-145); Total Bilirubin 0.3 mg/dL (0.15-1.2); Total Protein 6.3 g/dL (6.6-8.7)
[2023-06-10 22:24] LABS: Carbon Dioxide 42 mmol/L (22-29)
[2023-06-10 22:58] LABS: Procalcitonin 0.06 ng/mL (0-0.5)
[2023-06-10] MEDS: FUROsemide 10 mg/mL SDV 4mL 40 MG IVP (23:17)
[2023-06-10] MEDS: ondansetron 2 mg/ML SDV 2 mL 4 MG IVP (23:21)
[2023-06-10] MEDS: amiodarone 50 mg/mL SDV 3 mL 150 MG IVP (23:23)
--- NOTE | 2023-06-10 23:27 | ECG_ITS ---
[facility] Test Date: 2023-06-10 Pat Name: Fredrick Nathan Department: Room: 112 Gender: Male Colorist Photography: : 1955 Requested By: Mercedez Smith Order Number: [id number] Dilip MD: Ivan Alvarez M.D. Measurements Intervals [place] Rate: 129 P: 0 [place]: 0 QRS: 238 QRSD: 163 T: 53 QT: 331 QTc: 486 Interpretive Statements ATRIAL FLUTTER WITH RAPID VENTRICULAR RESPONSE INDETERMINATE AXIS RIGHT BUNDLE BRANCH BLOCK [120+ ms QRS DURATION, UPRIGHT V1, 40+ ms S IN I/aVL/V4/V5/V6] LEFT POSTERIOR FASCICULAR BLOCK [QRS AXIS > 109, INFERIOR Q] Compared to ECG 06/10/2023 21:30:59 Left posterior fascicular block now present Sinus tachycardia no longer present Myocardial infarct finding no longer present Electronically Signed On 06-14-2023 8:20:53 THERAPIST PHYSICAL by Ivan Alvarez M.D. [id number]
[2023-06-10] MEDS: iohexol 350 mg/mL 500 mL Btl (per mL) IV (23:39)
[2023-06-11] VITALS (20 sets, daily range): BP systolic 84–146; BP diastolic 64–85; PULSE 79–125; RESP 6–27; O2SAT 87–99; BMI 23.9
[2023-06-11 00:02] LABS: Troponin 5 2HR 32.19 ng/L (0-15); Troponin 5 2HR Delta 4.19 ABS# (0-10)
--- NOTE | 2023-06-11 00:58 | PC.NURSE ---
Waiting for pharmacy to verify ordered medications. ED meds fell off the pyxis and are not available.
[2023-06-11] MEDS: calcium gluconate 0.1 gm/mL 10% SDV 10mL 1 GM IVP (01:32)
[2023-06-11] MEDS: sodium polystyrene sulfonate 15 gm/60 mL Btl PO (01:32)
[2023-06-11] MEDS: morphine 4 mg/mL SDV 1 mL IVP (01:32)
[2023-06-11] MEDS: ondansetron 2 mg/ML SDV 2 mL 4 MG IVP (01:33)
--- NOTE | 2023-06-11 03:27 | ECG_ITS ---
[facility] Test Date: 2023-06-11 Pat Name: Fredrick Nathan Department: Room: 112 Gender: Male Mechanical Adjuster: : 1955 Requested By: Mercedez Smith Order Number: [id number] Dilip MD: Ivan Alvarez M.D. Measurements Intervals [place] Rate: 120 P: 186 TN: 237 QRS: 139 QRSD: 180 T: 17 QT: 352 QTc: 498 Interpretive Statements SINUS TACHYCARDIA WITH FIRST DEGREE AV BLOCK RIGHT AXIS DEVIATION [QRS AXIS > 100] RIGHT BUNDLE BRANCH BLOCK [120+ ms QRS DURATION, UPRIGHT V1, 40+ ms S IN I/aVL/V4/V5/V6] Compared to ECG 06/10/2023 23:16:17 First degree AV block now present Right-axis deviation now present Atrial flutter no longer present Indeterminate axis no longer present Left posterior fascicular block no longer present Electronically Signed On 06-14-2023 8:20:44 DESIGN TECHNOLOGY PROFESSOR by Ivan Alvarez M.D. [id number]
[2023-06-11 04:16] LABS: Basophils % 0.2 %; Lymphocytes # 0.1 10^3/uL (0.8-4.8); Lymphocytes % 1.5 %; Mean Corpuscular HGB Conc 30.4 g/dL (30-55); Mean Corpuscular Hemoglobin 31.4 pg (27-33); Mean Corpuscular Volume 103.3 fl (82-101); Mean Platelet Volume 13.3 fL (7.4-10.4); Monocytes # 0.1 10^3/uL (0.2-0.9); Monocytes % 1.2 %; Neutrophils # 5.88 10^3/uL (1.8-7.7); Neutrophils % 96.8 %; Nucleated Red Blood Cells % 0 %; Platelet Count 96 10^3/cmm (157-399); Red Blood Count 4.55 10^6/uL (3.85-5.65); Red Cell Distribution Width 13.1 % (12.1-15.1); White Blood Count 6.07 10^3/uL (3.29-11.43)
[2023-06-11 04:21] LABS: ABG PH Result 7.28 (7.35-7.45); Arterial Blood Gas Hematocrit 44.8 % (42-52); Blood Gas Allen Test Pos; Blood Gas Operator Identificat MONRO; Blood Gas Sample Site Radial, left; Blood Gas Sample Type Arterial; HCO3 ABG 43.2 mmol/L (22-26); Oxygen Device BIPAP; PO2 ABG 99.1 mmHg (80.0-100.0); PO2 FiO2 Ratio Arterial Blood 0
[2023-06-11 04:22] LABS: ABG PCO2 91.3 mmHg (35-45)
[2023-06-11] MEDS: ipratropium-albuterol 3 mL Neb INHALATION ×3 (04:30→19:57)
[2023-06-11 04:34] LABS: Troponin 5 6HR 30.25 ng/L (0-15); Troponin 5 6HR Delta 2.25 ng/L (0-12)
[2023-06-11 04:39] LABS: Anion Gap 12.3 (5-19); Blood Urea Nitrogen 29 mg/dL (8-23); Calcium 9.5 mg/dL (8.5-10.5); Carbon Dioxide 37 mmol/L (22-29); Chloride 92 mmol/L (98-107); Glomerular Filtration Rate 96.7 mL/min (90-130); Glucose 228 mg/dL (65-115); Magnesium 1.7 mg/dL (1.7-2.3); Osmolality Calculated 295 mOsm/kg (285-295); Phosphorus 3.9 mg/dL (2.5-4.5); Potassium 5.3 mmol/L (3.5-5.1); Sodium 136 mmol/L (136-145)
[2023-06-11] MEDS: dilTIAZem 5 mg/mL SDV 5 mL IVP (05:13)
[2023-06-11] MEDS: magnesium sulfate premix 1 GM/100 ML PIGGYBACK IV (05:14)
--- NOTE | 2023-06-11 05:47 | PC.NURSE ---
Informed Dr Dang of patient's labs this morning. Received instruction to transfer patient to ICU. Report called to DARIA Mcmahan.
--- NOTE | 2023-06-11 05:51 | PC.NURSE ---
Arrival to ICU 10: Pt arrived to ICU 10 @2582. Pt answers all orientation questions correctly. Pt appears to be extremely agitated, evidence by stating, get me a fucking god damed drink of water, shit , Ill sign the paper that says let me , and Ill be before you let me have a drink of fucking water . This RN explained in detail why the pt needs to keep the BiPAP mask on. Agitation increasing. Lyric RT aware. Charge nurse, DARIA Parks aware.
[2023-06-11 06:08] LABS: ABG PH Result 7.32 (7.35-7.45); Arterial Blood Gas Hematocrit 44.6 % (42-52); Base Excess ABG 12.9 mmol/L (-2.0-2.0); Blood Gas Allen Test Pos; Blood Gas Operator Identificat JB; Blood Gas Sample Site Radial, right; Blood Gas Sample Type Arterial; Carboxyhemoglobin 2.3 %THgb (0.4-20.1); HCO3 ABG 43.3 mmol/L (22-26); HGB O2 Sat 94.3 % (95-100); Ionized Calcium Level - ABG 1.3 mmol/L (1.1-1.4); Methemoglobin 0.8 % (0.4-1.5); Oxygen Device BIPAP; Oxygen Saturation ABG 97.3; PO2 ABG 83.8 mmHg (80.0-100.0); Potassium Level - ABG 5.3 mmol/L (3.5-5.0); Total Hemoglobin 14.6 g/dL (14-18)
[2023-06-11 06:09] LABS: Alveolar-Arterial Oxygen Gradi 17.4 mmHg (5-10); Blood Gas Tidal Volume 0.45; PO2 FiO2 Ratio Arterial Blood 0
[2023-06-11 06:22] LABS: ABG PCO2 84.3 mmHg (35-45)
[2023-06-11] MEDS: FUROsemide 10 mg/mL SDV 10mL 60 MG IVP (08:36)
[2023-06-11] MEDS: metoprolol tartrate 25 mg Tablet PO ×2 (08:37→21:24)
[2023-06-11] MEDS: sennosides-docusate Tablet 1 TAB PO (08:37)
[2023-06-11] MEDS: insulin lispro 100 unit/1 mL SUBCUT ×2 (08:37→17:03)
[2023-06-11] MEDS: methylPREDNISolone sod succ 40 mg SDV IVP ×2 (11:27→22:11)
[2023-06-11] MEDS: cefTRIAXone 1,000 MG in sodium chloride 0.9% (plus) 50 ML 100 MG IV (11:29)
[2023-06-11 11:41] LABS: Alanine Aminotransferase 20 U/L (0-41); Albumin Level 3.8 g/dL (3.5-5.2); Alkaline Phosphatase 62 U/L (40-130); Anion Gap 13.2 (5-19); Aspartate Amino Transferase 18 U/L (0-40); Blood Urea Nitrogen 28 mg/dL (8-23); Calcium 9.2 mg/dL (8.5-10.5); Carbon Dioxide 37 mmol/L (22-29); Chloride 92 mmol/L (98-107); Globulin 2.7 g/dL (1.3-4.6); Glomerular Filtration Rate 84.4 mL/min (90-130); Glucose 126 mg/dL (65-115); Osmolality Calculated 291 mOsm/kg (285-295); Potassium 5.2 mmol/L (3.5-5.1); Sodium 137 mmol/L (136-145); Total Bilirubin 0.3 mg/dL (0.15-1.2); Total Protein 6.5 g/dL (6.6-8.7)
[2023-06-11 12:26] LABS: Glucose Point of Care 99 mg/dL (70-110)
--- NOTE | 2023-06-11 14:30 | P.PN_ITS ---
Subjective 2 Subjective: Overnight labs and H&P reviewed. No acute interim events. Patient tolerated the BiPAP poorly, it made him feel claustrophobic. This morning he is off of the BiPAP. Currently saturating 97% on 3 L/min which is close to his baseline. He has converted into sinus rhythm at this time. Medications: Reviewed: Yes Vitals/I&O/Wt Last Vital Signs Temp 98.0 F 06/10/23 21:31 Pulse 91 06/11/23 13:59 Resp 18 06/11/23 13:59 BP 100/69 06/11/23 13:59 Pulse Ox 89 L 06/11/23 13:59 O2 Del Method Nasal Cannula 06/11/23 09:40 O2 Flow Rate 3 06/11/23 09:40 FiO2 45 06/11/23 04:33 06/10/23 06/11/23 06/11/23 22:59 06:59 14:59 Intake Total 295.259 / 295.259 530 / 530 Output Total 1650 / 1650 Balance -1354.741 / -1354.741 530 / 530 Weight last 48 hrs Weight 73.482 kg Weight 64.41 kg Physical Exam 2 Narrative: General: No acute distress, AO x3 HEENT: PERRLA, pupils bilaterally equal and reactive, pallors not present Chest: Normal vesicular breath sounds, no added sounds, equal good air entry bilaterally CVS: S1-S2 regular, no murmurs, no tachycardia, no gallops, no rubs Abdomen: Soft, nontender, no organomegaly, bowel sounds present Neuro: No focal deficits, no facial deformity, AO x3, power 5/5 in all limbs Urinary Catheter Management: [facility]: Cath Placed During This Visit: yes Reason for Continuing Indwelling Catheter: Accurate Measurement of Urinary Output in Critically Ill Patients Urinary Catheter Date of Insertion: 06/11/23 Urinary Catheter Time of Insertion: 03:13 Data 06/11/23 04:00 06/11/23 11:00 A&P Assessment and plan (1) Squamous cell carcinoma of lung: (2) Pulmonary hypertension: (3) Emphysema lung: (4) COPD (chronic obstructive pulmonary disease): (5) CHF (congestive heart failure), NYHA class III: Plan 67-year-old male with hypertension, hyperlipidemia, A-fib on Eliquis, history of lower extremity DVT, COPD chronically on 3 L/min nasal cannula, pulmonary hypertension, history of cardiomyopathy with last known EF of 15% from 2021. 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 He has had a poor daily functional status. Dyspnea with minimal activity since his cancer diagnosis. Has orthopnea at baseline. Usually wheelchair-bound due to dyspnea on exertion chronically. He has recently started chemotherapy with carboplatin paclitaxel LD on 06/07. He is also on concurrent radiation treatment. Patient presented overnight with chief complaints of chest pain, palpitations. He thought he was having a panic attack due to his chemotherapy. States he has been very nervous recently after his cancer diagnosis. He was found to have A-fib with RVR #A-fib with RVR Currently rate controlled He is on amiodarone infusion, will transition to oral amiodarone since patient is off BiPAP, respiratory status is stable at this time. DC full dose Lovenox, transition back to Eliquis 5 mg twice daily Troponins baseline at 28, 32 at 2 hours, 38 6 hours, no significant delta. Suspect mild elevation is related to known cardiomyopathy and type II demand supply mismatch. Denies any current chest pain. check echo to assess for interval change- last knoen EF 15% from 2021, severe pulm HTN # hypercapneic respiratory failure, related to COPD, CHF and lung cancer # COPD exacerbation ABG overnight with evidence of hypercapnic respiratory failure. Patient remained on BiPAP with AVAPS setting through the night. This morning he was noncompliant, reported claustrophobia and took off the BiPAP. Patient states he is not normally on BiPAP at home and usually just uses 3 L/min supplemental O2. Hypercapnia together with elevated bicarb suggest longstanding hypercapnic failure likely related to COPD. Start DuoNebs and budesonide inhalation scheduled. Methylprednisolone 40 mg IV every 12 hours COPD exacerbation may have precipitated A-fib RVR currently. Closely monitor respiratory status, high risk for decompensation given other cardiac and respiratory comorbidities. # Acute on S-CHF exacerbation Continue diuresis, can change IV diuresis to Lasix 40 mg p.o. daily Repeat echocardiogram Echo done in 2021 showed EF 15% with pulmonary hypertension DC [facility] per request Full code Cardiac diet DVT prophylaxis: Currently on full dose Lovenox, changed to Eliquis which patient takes at a baseline, closely monitor platelet count. Today at 96,000. No sign of active bleeding Attestations 2 Medical Necessity Statement*: continued management of A fib, transition amio drip to po meds, iv diuresis to po, check echo, closely monitor with these changes Coding Level of Care Code Acute Code for Chg Fwd Diagnoses Squamous cell carcinoma of lung C34.90 Pulmonary hypertension I27.20 Emphysema lung J43.9 COPD (chronic obstructive pulmonary disease) J44.9 CHF (congestive heart failure), NYHA class III I50.9
--- NOTE | 2023-06-11 14:40 | USCV_ITS ---
Fredrick Nathan Age: 67 Gender: M : 1955 Exam Date: 06/11/2023 16:14 Ordering Phys: Naye Ríos MD Technologist: Hardik Navarro Exam Location: [facility] [place] Indication: cardiomyopathy BP: 100 / 69 HR: 103 Rhythm: Sinus Technical Quality: Adequate MEASUREMENTS (Male / Female) Normal Values 2D ECHO LVOT Diameter 2.0 cm LV Ejection Fraction MOD 2C 36.6 % LV Ejection Fraction 2C AL 36.6 % LA Diameter 4.1 cm LA Width 4.1 cm LA Height 5.4 cm RA Width 5.2 cm RA Height 6.2 cm Aorta at Sinotubular Diameter 1.9 cm IVC Diameter 1.9 cm M-MODE Aortic Annulus Diameter 2.2 cm LA Ao Ratio MM 1.9 MV E Point Septal Separation 0.7 cm DOPPLER AV Peak Velocity 132.0 cm/s LVOT Peak Velocity 76.0 cm/s AV Area Cont Eq vti 1.4 cm squared AV Area Cont Eq pk 1.8 cm squared MV Peak Velocity 100.0 cm/s MV Area PHT 5.0 cm squared Mitral E to A Ratio 1.2 MV E' Velocity 33.5 cm/s Mitral E to MV E' Ratio 6.2 Mitral E to LV E' Lateral Ratio 6.0 Mitral E to LV E' Septal Ratio 6.4 TR Peak Velocity 247.1 cm/s TR Peak Gradient 24.4 mmHg TR Mean Velocity 170.4 cm/s TR Mean Gradient 13.5 mmHg TR Velocity Time Integral 66.2 cm Right Atrial Pressure 3.0 mmHg Pulmonary Artery Systolic Pressu 27.4 mmHg RV Acceleration Time 0.1 s RV Ejection Time 0.2 s RV AcT/ET 0.4 FINDINGS Left Ventricle Suboptimal visualization of the apex. Mildly dilated left ventricular size, mildly reduced systolic function with estimated ejection fraction of about 40 to 45%, with mild anterolateral hypokinesis . Normal left ventricular wall thickness. Normal diastolic filling pattern. Right Ventricle The right ventricle is normal in size and function. Right Atrium The right atrium is mildly dilated . Left Atrium The left atrium is normal in size. Mitral Valve Structurally normal mitral valve without significant stenosis or prolapse. There is mild mitral regurgitation. Aortic Valve Structurally normal aortic valve without significant sclerosis or stenosis. There is mild aortic regurgitation. Tricuspid Valve Structurally normal tricuspid valve without significant stenosis. There is mild regurgitation. Pulmonary artery systolic pressure is normal. Pulmonic Valve Structurally normal pulmonic valve without significant stenosis. There is no pulmonic regurgitation. Pericardium Normal pericardium without effusion. Aorta Normal ascending aorta dimension. IVC The inferior vena cava appears normal. CONCLUSIONS Moderately reduced LV function with EF estimated to be 40 to 45%. Suboptimal visualization of the apex. Suggest limited echo with contrast Definity or Optison for better assessment of ejection fraction. Jimena Calix MD (Electronically Signed) Final Date: 11 June 2023 17:03 Amended: 12 June 2023 10:46 C
[2023-06-11 17:02] LABS: Glucose Point of Care 157 mg/dL (70-110)
[2023-06-11] MEDS: amiodarone 200 mg Tablet 400 MG PO (17:03)
[2023-06-11] MEDS: budesonide 0.5 mg/2 mL Neb INHALATION (19:57)
[2023-06-11 20:18] LABS: Alanine Aminotransferase 18 U/L (0-41); Albumin Level 3.8 g/dL (3.5-5.2); Alkaline Phosphatase 60 U/L (40-130); Anion Gap 12.9 (5-19); Aspartate Amino Transferase 17 U/L (0-40); Blood Urea Nitrogen 31 mg/dL (8-23); Calcium 9.4 mg/dL (8.5-10.5); Carbon Dioxide 40 mmol/L (22-29); Chloride 92 mmol/L (98-107); Globulin 2.7 g/dL (1.3-4.6); Glomerular Filtration Rate 74.8 mL/min (90-130); Glucose 135 mg/dL (65-115); Osmolality Calculated 299 mOsm/kg (285-295); Potassium 4.9 mmol/L (3.5-5.1); Sodium 140 mmol/L (136-145); Total Bilirubin 0.2 mg/dL (0.15-1.2); Total Protein 6.5 g/dL (6.6-8.7)
[2023-06-11] MEDS: LORazepam 0.5 mg Tablet PO (20:25)
[2023-06-11] MEDS: apixaban 5 mg Tablet PO (21:24)
--- NOTE | 2023-06-11 21:51 | PC.NURSE ---
Upon first entering pt room, pt shouted, I need a cup of coffee. I am also going need something to help me sleep! This nurse got the pt decaf coffee because he is on a cardiac diet and stated he was having anxiety. Pt's niece called and told this nurse that pt had called her and stated he needed coffee and food and anxiety medicine. Niece stated pt takes lorazepam at night at home. This nurse contacted Dr. Dang and an order was received and given (see MAR). While waiting for pharmacy to verify medicine, pt stated If I don't get something for my anxiety soon, I'm gonna freak out! Shit! Pt continued to yell from room (even after lorazepam administration) at this nurse and at the athletic monitor. Pt educated on use of call light. Pt stated, You answer when I yell. I Don't need the annabelle call light, I can see you! Pt repeatedly shouted at this nurse and at athletic monitor that I need something to help me sleep! I need something for anxiety! Call my lydia doctor and talk to him and get me something!
[2023-06-11] MEDS: water for injection-sterile 10 ML (22:11)
[2023-06-11] MEDS: acetaminophen 500 mg Tablet PO (22:13)
[2023-06-12] VITALS (12 sets, daily range): BP systolic 97–131; BP diastolic 62–91; PULSE 91–121; RESP 15–19; TEMP 36.6; O2SAT 70–94
[2023-06-12] MEDS: LORazepam 2 mg/mL INJ 1 mL 0.5 MG IVP (00:11)
[2023-06-12] MEDS: ipratropium-albuterol 3 mL Neb INHALATION ×2 (01:25→09:31)
[2023-06-12 03:09] LABS: Glucose Point of Care 340 mg/dL (70-110)
[2023-06-12 04:37] LABS: Basophils % 0.1 %; Lymphocytes # 0.2 10^3/uL (0.8-4.8); Lymphocytes % 2.6 %; Mean Corpuscular HGB Conc 30.7 g/dL (30-55); Mean Corpuscular Hemoglobin 31.2 pg (27-33); Mean Corpuscular Volume 101.5 fl (82-101); Mean Platelet Volume 12.9 fL (7.4-10.4); Monocytes # 0.1 10^3/uL (0.2-0.9); Monocytes % 1.7 %; Neutrophils # 7.38 10^3/uL (1.8-7.7); Nucleated Red Blood Cells % 0 %; Platelet Count 89 10^3/cmm (157-399); Red Blood Count 4.04 10^6/uL (3.85-5.65); Red Cell Distribution Width 13.1 % (12.1-15.1); White Blood Count 7.77 10^3/uL (3.29-11.43)
--- NOTE | 2023-06-12 05:02 | ECG_ITS ---
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 Measurements Intervals [place] Rate: 120 P: 0 SC: 0 QRS: 177 QRSD: 182 T: 26 QT: 360 QTc: 510 Interpretive Statements SINUS TACHYCARDIA RIGHT AXIS DEVIATION [QRS AXIS > 100] RIGHT BUNDLE BRANCH BLOCK [120+ ms QRS DURATION, UPRIGHT V1, 40+ ms S IN I/aVL/V4/V5/V6] SEPTAL MYOCARDIAL INFARCTION , PROBABLY OLD [40+ ms Q WAVE IN V1/V2] Compared to ECG 06/11/2023 04:12:07 Myocardial infarct finding now present First degree AV block no longer present Electronically Signed On 06-14-2023 8:19:08 DIP TANKER by Ivan Alvarez M.D. [id number]
[2023-06-12] MEDS: nitroglycerin 0.4 mg sublingual Tablet SUBLINGUAL (05:06)
[2023-06-12] MEDS: lidocaine 2% viscous 15 ML, aluminum-mag hydrox-simethicon 30 ML, sucralfate oral liq 1 GM PO (06:10)
[2023-06-12 07:52] LABS: Glucose Point of Care 140 mg/dL (70-110)
[2023-06-12] MEDS: FUROsemide 40 mg Tablet PO (08:32)
[2023-06-12] MEDS: metoprolol tartrate 25 mg Tablet PO (08:32)
[2023-06-12] MEDS: apixaban 5 mg Tablet PO (08:32)
[2023-06-12] MEDS: amiodarone 200 mg Tablet 400 MG PO (08:32)
[2023-06-12] MEDS: sennosides-docusate Tablet 1 TAB PO (08:32)
[2023-06-12] MEDS: budesonide 0.5 mg/2 mL Neb INHALATION (09:31)
[2023-06-12] MEDS: cefTRIAXone 1,000 MG in sodium chloride 0.9% (plus) 50 ML 100 MG IV (10:19)
[2023-06-12] MEDS: methylPREDNISolone sod succ 40 mg SDV IVP (10:20)
[2023-06-12] MEDS: metoprolol tartrate 1 mg/1 mL SDV 5 mL 2.5 MG IVP (11:08)
--- NOTE | 2023-06-12 11:25 | P.DS_ITS ---
Discharge Providers Date of Admission: 06/10/23 22:46 Date of Discharge: June 12, 2023 Attending Provider at Admission: Citlali Dang MD Attending Provider at Discharge: Naye Ríos MD Primary Care Provider: Delbert Webster Diagnoses at Discharge Discharge Diagnosis (1) Squamous cell carcinoma of lung: Status: Acute (2) Pulmonary hypertension: Status: Acute (3) Emphysema lung: Status: Acute (4) COPD (chronic obstructive pulmonary disease): Status: Acute (5) CHF (congestive heart failure), NYHA class III: Status: Acute Reason for Visit Reason for Visit: Chest Pain Brief History: Fredrick Nathan is a 67 year old male with history of lung cancer,currently on carboplatin and paclitaxel , h/o cardiomyopathy presented with A fib with RVR and shortness of breath. He also had signs of hypercapenic respiratory failure. He was treated with Bipap ventilation, however it made him feel calautrophobic and he did not continue this further. He reveived iv diuresis and was started on iv amiodarone infusion which has transitioned to oral amiodarone. HR is better controlled. Metoprolol additionally increased to 25 daily from 12.5 daily. Patient has been on Entresto over the past year. Last EF from 2021 was at 15% with diffuse hypokinesia, echo repeated this admission shows normal EF, question of lateral wall hypokinesia for which echo with contrast has been ordered per cardiology recommendations. He has a follow up appt with Dr. gutiérrez on 06/15 at 11AM. he is eager to return home. Hospital Course Hospital Course Fredrick Nathan is a 67 year old male with history of lung cancer,currently on carboplatin and paclitaxel , h/o cardiomyopathy presented with A fib with RVR and shortness of breath. He also had signs of hypercapenic respiratory failure. He was treated with Bipap ventilation, however it made him feel calautrophobic and he did not continue this further. He reveived iv diuresis and was started on iv amiodarone infusion which has transitioned to oral amiodarone. HR is better c ontrolled. Metoprolol additionally increased to 37.5 BID from 25 BID. Patient has been on Entresto over the past year. Last EF from 2021 was at 15% with diffuse hypokinesia, echo repeated this admission shows normal EF, question of lateral wall hypokinesia for which echo with contrast has been ordered per cardiology recommendations. He has a follow up appt with Dr. gutiérrez on 06/15 at 11AM. he is eager to return home. Physical Exam Narrative: General: No acute distress, AO x3 HEENT: PERRLA, pupils bilaterally equal and reactive, pallors not present Chest: Normal vesicular breath sounds, no added sounds, equal good air entry bilaterally CVS: S1-S2 regular, no murmurs, no tachycardia, no gallops, no rubs Abdomen: Soft, nontender, no organomegaly, bowel sounds present Neuro: No focal deficits, no facial deformity, AO x3, power 5/5 in all limbs Urinary Catheter Management: Hopkins: Cath Placed During This Visit: yes, but has since been removed by the nurse Reason for Continuing Indwelling Catheter: Accurate Measurement of Urinary Output in Critically Ill Patients Urinary Catheter Date of Insertion: 06/11/23 Urinary Catheter Time of Insertion: 03:13 Date Urinary Catheter Removed: 06/11/23 Time Urinary Catheter Discontinued: 11:00 Discharge Data Studies Completed and Pending Completed Studies During Hospitalization Category Date Time Status CTA chest [CT angio chest PE protcl [id number]] Stat Cat Scan 06/10/23 22:12 Completed XR chest 1V portable [id number] Stat Exams 06/10/23 21:27 Completed CV. echo complete* [id number] Routine Ultrasound 06/11/23 14:40 Completed Pending at discharge Category Date Time Status CV. echo limited [id number] Routine Ultrasound 06/12/23 10:38 Ordered Radiology Impressions Chest X-Ray 06/10/23 21:27 IMPRESSION: Cardiomegaly and pulmonary vascular congestion. Chest CTA 06/10/23 22:12 IMPRESSION: 1. Negative for pulmonary embolus. 2. Bilateral adrenal hypertrophy suspected. 3. Small to moderate right pleural effusion. 4. Emphysematous changes. 5. Right hilar 6.8 cm somewhat confluent masslike airspace opacity with some associated airspace opacification in the right upper lobe, concerning for a malignant process, please correlate with history and consider tissue correlation. 6. Cardiomegaly. Laboratory Results WBC 7.77 10^3/uL (3.29-11.43) 06/12/23 04:15 RBC 4.04 10^6/uL (3.85-5.65) 06/12/23 04:15 Hgb 12.60 g/dL (11.27-16.99) 06/12/23 04:15 Hct 41.0 % (37-53) 06/12/23 04:15 MCV 101.5 fl (82-101) H 06/12/23 04:15 MCH 31.2 pg (27-33) 06/12/23 04:15 MCHC 30.7 g/dL (30-55) 06/12/23 04:15 RDW 13.1 % (12.1-15.1) 06/12/23 04:15 Plt Count 89 10^3/cmm (157-399) L 06/12/23 04:15 MPV 12.9 fL (7.4-10.4) H 06/12/23 04:15 Neut % (Auto) 95.0 % 06/12/23 04:15 Lymph % (Auto) 2.6 % 06/12/23 04:15 [place] % (Auto) 1.7 % 06/12/23 04:15 Eos % (Auto) 0.0 % 06/12/23 04:15 Baso % (Auto) 0.1 % 06/12/23 04:15 Neut # (Auto) 7.38 10^3/uL (1.8-7.7) 06/12/23 04:15 Lymph # (Auto) 0.2 10^3/uL (0.8-4.8) L 06/12/23 04:15 [place] # (Auto) 0.1 10^3/uL (0.2-0.9) L 06/12/23 04:15 Eos # (Auto) 0.0 10^3/uL (0.0-0.8) 06/12/23 04:15 Baso # (Auto) 0.0 10^3/uL (0.0-0.1) 06/12/23 04:15 Nucleated RBC % (auto) 0 % 06/12/23 04:15 Nucleated RBCs # 0.0 /100WBC 06/12/23 04:15 PT 16.00 SECONDS (12.1-14.9) H 06/10/23 21:42 INR 1.24 (0.8-1.2) H 06/10/23 21:42 D-Dimer 0.97 ug/mLFEU (0-0.59) H 06/10/23 21:42 Specimen Type Arterial 06/11/23 05:55 Sample Site Radial, right 06/11/23 05:55 ABG pH 7.32 (7.35-7.45) L 06/11/23 05:55 ABG pCO2 84.3 mmHg (35-45) H* 06/11/23 05:55 ABG pO2 83.8 mmHg (80.0-100.0) 06/11/23 05:55 ABG PO2/FiO2 Ratio 0 06/11/23 05:55 ABG HCO3 43.3 mmol/L (22-26) H 06/11/23 05:55 ABG O2 Saturation 97.3 06/11/23 05:55 ABG Base Excess 12.9 mmol/L (-2.0-2.0) H 06/11/23 05:55 Fawad Test Pos 06/11/23 05:55 A-a O2 Gradient 17.4 mmHg (5-10) H 06/11/23 05:55 Hematocrit 44.6 % (42-52) 06/11/23 05:55 Hgb O2 Saturation 94.3 % (95-100) L 06/11/23 05:55 Carboxyhemoglobin 2.3 %THgb (0.4-20.1) 06/11/23 05:55 Methemoglobin 0.8 % (0.4-1.5) 06/11/23 05:55 Total Hemoglobin 14.6 g/dL (14-18) 06/11/23 05:55 Sodium 137.0 mmol/L (131-143) 06/11/23 05:55 Potassium 5.3 mmol/L (3.5-5.0) H 06/11/23 05:55 Glucose 202.0 mg/dL (70-115) H 06/11/23 05:55 Ionized Calcium 1.3 mmol/L (1.1-1.4) 06/11/23 05:55 O2 Delivery Device Bipap 06/11/23 05:55 O2 Liters/Min 5.0 % 06/10/23 22:15 FiO2 45.0 % 06/11/23 05:55 Tidal Volume 0.45 06/11/23 05:55 PEEP 8.0 cmH20 06/11/23 05:55 Adult [employer] In[employer] ID Matt 06/11/23 05:55 Sodium 140 mmol/L (136-145) 06/11/23 19:15 Potassium 4.9 mmol/L (3.5-5.1) 06/11/23 19:15 Chloride 92 mmol/L (98-107) L 06/11/23 19:15 Carbon Dioxide 40 mmol/L (22-29) H 06/11/23 19:15 Anion Gap 12.9 (5-19) 06/11/23 19:15 BUN 31 mg/dL (8-23) H 06/11/23 19:15 Creatinine 1.0 mg/dL (0.7-1.2) 06/11/23 19:15 GFR Calculation 74.8 mL/min (90-130) L 06/11/23 19:15 Glucose 135 mg/dL (65-115) H 06/11/23 19:15 POC Glucose 140 mg/dL (70-110) H 06/12/23 07:49 Calculated Osmolality 299 mOsm/kg (285-295) H 06/11/23 19:15 Calcium 9.4 mg/dL (8.5-10.5) 06/11/23 19:15 Phosphorus 3.9 mg/dL (2.5-4.5) 06/11/23 04:00 Magnesium 1.7 mg/dL (1.7-2.3) 06/11/23 04:00 Total Bilirubin 0.2 mg/dL (0.15-1.2) 06/11/23 19:15 AST 17 U/L (0-40) 06/11/23 19:15 ALT 18 U/L (0-41) 06/11/23 19:15 Alkaline Phosphatase 60 U/L (40-130) 06/11/23 19:15 Troponin T Baseline 28 ng/L (0-15) H 06/10/23 21:42 Troponin T 120 Minute 32.19 ng/L (0-15) H 06/10/23 23:40 Delta Troponin T 4.19 ABS# (0-10) 06/10/23 23:40 Troponin T Hi Sens 6Hr 30.25 ng/L (0-15) H 06/11/23 04:00 Troponin T Hi Sens 6Hr Delta 2.25 ng/L (0-12) 06/11/23 04:00 C-Reactive Protein 3.0 mg/L (0.0-4.9) 06/11/23 04:00 NT-Pro-B Natriuret Pep 3287 pg/mL (0-125) H 06/10/23 21:42 Total Protein 6.5 g/dL (6.6-8.7) L 06/11/23 19:15 Albumin 3.8 g/dL (3.5-5.2) 06/11/23 19:15 Globulin 2.7 g/dL (1.3-4.6) 06/11/23 19:15 Procalcitonin 0.06 ng/mL (0-0.5) 06/10/23 21:42 Vitals Last Vital Signs Temp 97.9 F 06/12/23 06:00 Pulse 105 H 06/12/23 09:32 Resp 16 06/12/23 09:32 BP 105/62 06/12/23 08:00 Pulse Ox 94 06/12/23 09:32 O2 Del Method Nasal Cannula 06/12/23 09:32 O2 Flow Rate 3 06/12/23 09:32 FiO2 45 06/11/23 04:33 Discharge Plan Discharge Patient Disposition: Home Condition: Stable Prescriptions: New amiodarone [Pacerone] 200 mg Tablet 400 mg PO BID 30 Days Qty: 120 0RF Continued albuterol sulfate 2.5 mg /3 mL (0.083 %) solution for nebulization 2.5 mg inhalation Q4H PRN (Reason: Wheezing) sildenafil [Viagra] 100 mg tablet 100 mg PO DAILY PRN (Reason: sexual dysfunction) Rx Instructions: administer 30 minutes to 4 hours before activity Entresto 24-26 mg tablet 1 tab PO BID Qty: 60 0RF Eliquis 5 mg tablet 5 mg PO BID atorvastatin 40 mg tablet 40 mg PO DAILY Jardiance 10 mg tablet 10 mg PO DAILY omeprazole 20 mg capsule,delayed release(DR/EC) 20 mg PO DAILY Trelegy Ellipta 100-62.5-25 mcg blister with device 1 inh inhalation DAILY (DME) oxygen mask See Rx Instructions .Route .MEDSUPPLY Qty: 1 0RF Rx Instructions: Oxygen mask and all tubing/supplies lorazepam 1 mg tablet 0.5 - 1 mg PO Q6H PRN (Reason: Severe Nausea) Qty: 30 3RF prochlorperazine maleate [Compazine] 10 mg tablet 10 mg PO Q4H PRN (Reason: Mild Nausea) Qty: 30 3RF Changed metoprolol succinate 25 mg tablet extended release 24 hr 25 mg PO DAILY 30 Days Qty: 30 2RF furosemide [Lasix] 20 mg tablet 40 mg PO DAILY 30 Days Qty: 30 0RF Discontinued meloxicam 7.5 mg tablet 7.5 mg PO DAILY Qty: 7 0RF Discharge Orders: Discharge Order (Routine); Ordered 06/12/23 Ordered By: Naye Ríos Referrals: Delbert Webster [Primary Care Provider] - Philip Gutiérrez MD [Physician] - 06/15/23 11:00 am Discharge Diet: Usual diet Patient Instructions: Opioid Safety Plan of Treatment: increase lasix to 40mg every 12 hrs over the next 3 days, then reduce dose back to 20mg daily. started new medication amiodarone 400mg twice a day. reduce dose to 200mg twice a day after one week. Increase metoprolol to 25mg daily from 12.5 mg daily Please keep yor cardiology appt on 06/15 Discharge Attestations Time Spent in Discharge Care*: greater than 30 min Quality Metrics Clinical Quality Measures [ No reported AMI, CVA or VTE this stay] Coding Level of Care Code Acute Code for Chg Fwd Diagnoses Squamous cell carcinoma of lung C34.90 Pulmonary hypertension I27.20 Emphysema lung J43.9 COPD (chronic obstructive pulmonary disease) J44.9 CHF (congestive heart failure), NYHA class III I50.9
[2023-06-12 13:17] LABS: Glucose Point of Care 143 mg/dL (70-110)
--- NOTE | 2023-06-12 13:58 | PC.NURSE ---
pt had talked with doctor and was being discharged and pt proceded to pull iv and prepare for discharge .. did not wait for echo to be done at this time doctor aware
[2023-06-22 10:01] LABS: ABG PCO2 87.6 mmHg (35-45)
== END 2023-06-12 13:00 | disposition home or self-care (01) | DRG 308 ==
LOC: ER 21:53 → CSU 22:47 → ICU 06-11 04:59
PROVIDERS: Admitting Provider Internal Medicine; Emergency Provider Emergency Medicine; PCP Family Medicine; Visit Provider Student in an Organized Health Care Education/Training Program
DX: I48.91 Unspecified atrial fibrillation (principal); I50.21 Acute systolic (congestive) heart failure; J96.22 Acute and chronic respiratory failure with hypercapnia; J96.21 Acute and chronic respiratory failure with hypoxia; C34.01 Malignant neoplasm of right main bronchus; C77.1 Secondary and unspecified malignant neoplasm of intrathoracic lymph nodes; Z79.01 Long term (current) use of anticoagulants; J43.9 Emphysema, unspecified; I27.20 Pulmonary hypertension, unspecified; N52.9 Male erectile dysfunction, unspecified; Z87.891 Personal history of nicotine dependence; Z86.718 Personal history of other venous thrombosis and embolism; I42.9 Cardiomyopathy, unspecified; Z99.3 Dependence on wheelchair; Z99.81 Dependence on supplemental oxygen
CPT/HCPCS: 36415; 36416; 36600; 51702; 71045; 71275; 77336; 77386; 80048; 80051; 80053; 82330; 82803; 82805; 82962; 83735; 83880; 84100; 84145; 84484; 85025; 85378; 85610; 86140; 93005; 93306; 94640; 94660; 96365; 96367; 96372; 96375; 96376; 96413; 96417; 99024; 99215; 99291; A4222; J0282; J0283; J0612; J0696; J1100; J1200; J1642; J1815; J1940; J2060; J2270; J2405; J2469; J2920; J2930; J3475; J3490; J7040; J7050; J7626; J9045; J9267; Q9967

== ENCOUNTER 2023-06-28 08:49 | Oncology outpatient (recurring) (ONCR) | payer MEDICARE, MEDICAID, SELFPAY ==
[2023-06-14 09:12] VITALS: BP 109/66; RESP 20; TEMP 36.4
[2023-06-14 09:37] LABS: Basophils % 0.2 %; Eosinophils % 0.4 %; Hematocrit 46.9 % (37-53); Lymphocytes # 0.7 10^3/uL (0.8-4.8); Lymphocytes % 15.5 %; Mean Corpuscular HGB Conc 30.1 g/dL (30-55); Mean Corpuscular Hemoglobin 31.1 pg (27-33); Mean Corpuscular Volume 103.5 fl (82-101); Mean Platelet Volume 12.8 fL (7.4-10.4); Monocytes # 0.4 10^3/uL (0.2-0.9); Monocytes % 8.7 %; Neutrophils # 3.52 10^3/uL (1.8-7.7); Neutrophils % 74.6 %; Nucleated Red Blood Cells % 0 %; Platelet Count 97 10^3/cmm (157-399); Red Blood Count 4.53 10^6/uL (3.85-5.65); Red Cell Distribution Width 13.3 % (12.1-15.1); White Blood Count 4.72 10^3/uL (3.29-11.43)
[2023-06-14 09:49] LABS: Alanine Aminotransferase 18 U/L (0-41); Albumin Level 3.7 g/dL (3.5-5.2); Alkaline Phosphatase 53 U/L (40-130); Anion Gap 14.2 (5-19); Aspartate Amino Transferase 22 U/L (0-40); Blood Urea Nitrogen 25 mg/dL (8-23); Calcium 9.1 mg/dL (8.5-10.5); Carbon Dioxide 37 mmol/L (22-29); Chloride 94 mmol/L (98-107); Globulin 2.5 g/dL (1.3-4.6); Glomerular Filtration Rate 84.4 mL/min (90-130); Glucose 172 mg/dL (65-115); Osmolality Calculated 300 mOsm/kg (285-295); Potassium 4.2 mmol/L (3.5-5.1); Sodium 141 mmol/L (136-145); Total Bilirubin 0.5 mg/dL (0.15-1.2); Total Protein 6.2 g/dL (6.6-8.7)
[2023-06-14] MEDS: sodium chloride 0.9% 500 ML 75 ML IV (12:25)
[2023-06-14] MEDS: diphenhydrAMINE 50 mg/mL SDV 1mL 25 MG IVP (12:26)
[2023-06-14] MEDS: palonosetron 0.25 mg/5 mL SDV IVP (12:28)
[2023-06-14] MEDS: famotidine 20 mg/2 mL INJ IVP (12:32)
[2023-06-14] MEDS: acetaminophen 325 mg Tablet 650 MG PO (12:35)
[2023-06-14] MEDS: dexamethasone 20 MG in sodium chloride 0.9% 50 ML 188 MG IV (12:56)
[2023-06-14] MEDS: PACLitaxeL 90 MG in sodium chloride 0.9%(non-DEHP) 250 ML 265 MG IV (13:18)
[2023-06-14] MEDS: CARBOplatin 210 MG in sodium chloride 0.9% 500 ML 521 MG IV (14:29)
[2023-06-14 15:51] VITALS: BP 122/76; PULSE 116; O2SAT 90
--- NOTE | 2023-06-15 09:38 | ONCRAD TMN_ITS ---
Radiation Oncology Weekly Treatment Management Patient: Fredrick Nathan MR#: [id number] : 1955 Attending Physician: Dr. Opal Foster Date of Service: 06/15/2023 Fractions: Referring Physician(s) : Diagnosis: Squamous of carcinoma of the lung Radiotherapy to date: Course: Lung 2022, Treatment Site: RT Lung, Ref. ID: [id number], Energy: 6X, Dose/Fx (cGy): 200, #Fx: , Dose Correction (cGy): 0, Total Dose (cGy): 1,800, Start Date: 05/31/2023, Elapsed Days: 15 Reason for visit: The patient is being seen today as part of their regularly scheduled weekly on treatment visits to assess for acute toxicities from radiotherapy. Review of Systems: He is doing well in regards to his treatment. He has noticed no difficulty swallowing other than his normal. He has had issues over the weekend and was hospitalized with A-fib. He is being seen in the heart and lung clinic today. Vital Signs: Performed on 06/15/2023 9:08 AM BMI - 23.598 kg/m2 (high), Height - 68 in, Weight - 155.2 lbs, Temperature - 97.1 f, Pulse - 83 /min, Respiration - 16 /min, O2 Sat - 90 % (low), Pain - 0, Fatigue - 4 and BP - 102/ 57 mm(hg)(/low). Physical Exam: Skin is without changes. Respiratory rate is regular nonlabored Imaging: Radiation therapy imaging related to accurate target localization (i.e. KV, MV and CBCT) was reviewed. Appropriate changes, if any, were made to ensure treatment accuracy. Plan: At this time he is doing well in regards to his treatment. He is having no ill effects from his radiation. We will continue with his treatments as planned. Signed by: Dr. Opal Foster 06/15/2023 9:36:38 AM
[2023-06-21 09:35] VITALS: BP 111/62; PULSE 52; TEMP 36.4; O2SAT 87
[2023-06-21 10:03] LABS: Basophils % 0.6 %; Eosinophils % 0.3 %; Hematocrit 43.4 % (37-53); Lymphocytes # 0.4 10^3/uL (0.8-4.8); Lymphocytes % 11.4 %; Mean Corpuscular Hemoglobin 31.3 pg (27-33); Mean Corpuscular Volume 104.6 fl (82-101); Mean Platelet Volume 12.1 fL (7.4-10.4); Monocytes # 0.2 10^3/uL (0.2-0.9); Monocytes % 6.7 %; Neutrophils % 80.4 %; Nucleated Red Blood Cells % 0 %; Platelet Count 82 10^3/cmm (157-399); Red Blood Count 4.15 10^6/uL (3.85-5.65); Red Cell Distribution Width 13.3 % (12.1-15.1)
[2023-06-21 10:14] LABS: Alanine Aminotransferase 21 U/L (0-41); Albumin Level 3.7 g/dL (3.5-5.2); Alkaline Phosphatase 55 U/L (40-130); Anion Gap 7.9 (5-19); Aspartate Amino Transferase 28 U/L (0-40); Blood Urea Nitrogen 23 mg/dL (8-23); Calcium 8.7 mg/dL (8.5-10.5); Carbon Dioxide 40 mmol/L (22-29); Chloride 97 mmol/L (98-107); Globulin 2.6 g/dL (1.3-4.6); Glomerular Filtration Rate 96.7 mL/min (90-130); Glucose 132 mg/dL (65-115); Osmolality Calculated 296 mOsm/kg (285-295); Potassium 4.9 mmol/L (3.5-5.1); Sodium 140 mmol/L (136-145); Total Bilirubin 0.4 mg/dL (0.15-1.2); Total Protein 6.3 g/dL (6.6-8.7)
[2023-06-21] MEDS: palonosetron 0.25 mg/5 mL SDV IVP (11:08)
[2023-06-21] MEDS: sodium chloride 0.9% 250 ML 75 ML IV (11:08)
[2023-06-21] MEDS: acetaminophen 325 mg Tablet 650 MG PO (11:09)
[2023-06-21] MEDS: famotidine 20 mg/2 mL INJ IVP (11:11)
[2023-06-21] MEDS: diphenhydrAMINE 50 mg/mL SDV 1mL 25 MG IVP (11:11)
[2023-06-21] MEDS: dexamethasone 20 MG in sodium chloride 0.9% 50 ML 188 MG IV (11:13)
[2023-06-21] MEDS: PACLitaxeL 90 MG in sodium chloride 0.9%(non-DEHP) 250 ML 265 MG IV (11:51)
[2023-06-21] MEDS: CARBOplatin 230 MG in sodium chloride 0.9% 500 ML 523 MG IV (13:07)
[2023-06-21 14:10] VITALS: BP 100/72; PULSE 75; RESP 18; TEMP 36.3; O2SAT 99
--- NOTE | 2023-06-22 11:45 | ONCRAD TMN_ITS ---
Radiation Oncology Weekly Treatment Management Patient: Venita Ramirez MR#: [id number] : 1955> Attending Physician: Dr. Opal Foster Date of Service: 06/22/2023 Fractions: 14 out of 32 Referring Physician(s) : Diagnosis: Radiotherapy to date: Course: Lung 2022, Treatment Site: RT Lung, Ref. ID: [id number], Energy: 6X, Dose/Fx (cGy): 200, #Fx: 14 / 32, Dose Correction (cGy): 0, Total Dose (cGy): 2,800, Start Date: 05/31/2023, Elapsed Days: 22 Reason for visit: The patient is being seen today as part of their regularly scheduled weekly on treatment visits to assess for acute toxicities from radiotherapy. Review of Systems: Patient is actually doing quite well. He has had no difficulty swallowing. His respiratory status has remained stable. He would like to get outside and sit on his porch. Vital Signs: Performed on 06/22/2023 11:06 AM BMI - 23.811 kg/m2 (high), Height - 68 in, Weight - 156.6 lbs, Temperature - 97 f, Pulse - 84 /min, Respiration - 18 /min, O2 Sat - 89 % (low), Pain - 0, Fatigue - 0 and BP - 104/ 63 mm(hg)(/low). Physical Exam: Skin is without changes Imaging: Radiation therapy imaging related to accurate target localization (i.e. KV, MV and CBCT) was reviewed. Appropriate changes, if any, were made to ensure treatment accuracy. Plan: Will continue with his treatments as planned. I did encourage him to get out and sit on his porch or walk around in his yard since he has his portable oxygen. Signed by: Dr. Opal Foster 06/22/2023 11:43:55 AM
[2023-06-28 08:55] VITALS: BP 97/68; PULSE 88; RESP 20; TEMP 36
[2023-06-28 09:12] LABS: Basophils % 0.6 %; Eosinophils % 1.7 %; Hematocrit 38.6 % (37-53); Lymphocytes # 0.3 10^3/uL (0.8-4.8); Lymphocytes % 15.6 %; Mean Corpuscular HGB Conc 31.3 g/dL (30-55); Mean Corpuscular Hemoglobin 31.8 pg (27-33); Mean Corpuscular Volume 101.6 fl (82-101); Mean Platelet Volume 11.2 fL (7.4-10.4); Monocytes # 0.1 10^3/uL (0.2-0.9); Monocytes % 6.1 %; Neutrophils # 1.36 10^3/uL (1.8-7.7); Neutrophils % 75.4 %; Nucleated Red Blood Cells % 0 %; Platelet Count 63 10^3/cmm (157-399); Red Cell Distribution Width 13.2 % (12.1-15.1)
[2023-06-28 09:39] LABS: Alanine Aminotransferase 25 U/L (0-41); Albumin Level 3.6 g/dL (3.5-5.2); Alkaline Phosphatase 53 U/L (40-130); Anion Gap 7.5 (5-19); Aspartate Amino Transferase 21 U/L (0-40); Blood Urea Nitrogen 20 mg/dL (8-23); Calcium 8.6 mg/dL (8.5-10.5); Carbon Dioxide 38 mmol/L (22-29); Chloride 96 mmol/L (98-107); Globulin 2.5 g/dL (1.3-4.6); Glomerular Filtration Rate 96.7 mL/min (90-130); Glucose 136 mg/dL (65-115); Osmolality Calculated 289 mOsm/kg (285-295); Potassium 4.5 mmol/L (3.5-5.1); Sodium 137 mmol/L (136-145); Total Bilirubin 0.4 mg/dL (0.15-1.2); Total Protein 6.1 g/dL (6.6-8.7)
== END 2023-06-28 23:59 | disposition home or self-care (01) ==
PROVIDERS: Internal Medicine; Nurse Practitioner Family; PCP Family Medicine; Visit Provider Radiology Radiation Oncology
DX: Z51.0 Encounter for antineoplastic radiation therapy; C34.90 Malignant neoplasm of unspecified part of unspecified bronchus or lung; D64.9 Anemia, unspecified; Z79.899 Other long term (current) drug therapy; Z53.9 Procedure and treatment not carried out, unspecified reason
CPT/HCPCS: 77336; 77386; 80053; 85025; 93005; 96365; 96367; 96375; 96413; 96417; 99024; 99204; 99213; 99214; 99215; J1100; J1200; J1642; J2469; J3490; J7040; J7050; J9045; J9267

== ENCOUNTER 2023-07-09 10:35 | Oncology outpatient (recurring) (ONCR) | payer MEDICARE, MEDICAID, SELFPAY ==
--- NOTE | 2023-06-29 13:05 | ONCRAD TMN_ITS ---
Radiation Oncology Weekly Treatment Management Patient: Fredrick Nathan MR#: [id number] : 1955 Attending Physician: Jose Steinberg Date of Service: 06/29/2023 Referring Physician(s) : Diagnosis: Radiotherapy to date: Course: Lung 2022, Treatment Site: RT Lung, Ref. ID: [id number], Energy: 6X, Dose/Fx (cGy): 200, #Fx: , Dose Correction (cGy): 0, Total Dose (cGy): 3,800, Start Date: 05/31/2023, Elapsed Days: 29 Reason for visit: The patient is being seen today as part of their regularly scheduled weekly on treatment visits to assess for acute toxicities from radiotherapy. Review of Systems: Notes some fatigue. Swallowing ok. Off tobacco. On Lasix 20 mg a day. Vital Signs: Performed on 06/29/2023 11:56 AM BMI - 23.142 kg/m2 (high), Height - 68 in, Weight - 152.2 lbs, Temperature - 96.7 f, Pulse - 85 /min, Respiration - 16 /min, O2 Sat - 99 %, Pain - 0, Fatigue - 4 and BP - 97/ 67 mm(hg). Physical Exam: No pedal edema Imaging: Radiation therapy imaging related to accurate target localization (i.e. KV, MV and CBCT) was reviewed. Appropriate changes, if any, were made to ensure treatment accuracy. Plan: Good tolerance of treatment. He has hypotension. We will reduce Lasix to 10 mg a day for now. Continue treatment as planned. Signed by: Jose Steinberg 06/29/2023 1:04:23 PM
[2023-07-06 08:45] VITALS: BP 109/68; PULSE 97; RESP 17; TEMP 36.2; O2SAT 98
[2023-07-06 09:10] LABS: Alanine Aminotransferase 14 U/L (0-41); Albumin Level 3.9 g/dL (3.5-5.2); Alkaline Phosphatase 65 U/L (40-130); Anion Gap 10.5 (5-19); Aspartate Amino Transferase 17 U/L (0-40); Blood Urea Nitrogen 18 mg/dL (8-23); Calcium 9.7 mg/dL (8.5-10.5); Carbon Dioxide 39 mmol/L (22-29); Chloride 95 mmol/L (98-107); Globulin 2.7 g/dL (1.3-4.6); Glomerular Filtration Rate 112.8 mL/min (90-130); Glucose 104 mg/dL (65-115); Osmolality Calculated 292 mOsm/kg (285-295); Potassium 4.5 mmol/L (3.5-5.1); Sodium 140 mmol/L (136-145); Total Bilirubin 0.2 mg/dL (0.15-1.2); Total Protein 6.6 g/dL (6.6-8.7)
[2023-07-06 10:20] LABS: Eosinophils % 3.7 %; Hematocrit 37.7 % (37-53); Lymphocytes # 0.2 10^3/uL (0.8-4.8); Mean Corpuscular HGB Conc 31.6 g/dL (30-55); Mean Corpuscular Hemoglobin 32.2 pg (27-33); Mean Corpuscular Volume 102.2 fl (82-101); Mean Platelet Volume 12.2 fL (7.4-10.4); Monocytes # 0.2 10^3/uL (0.2-0.9); Monocytes % 25.9 %; Neutrophils % 46.9 %; Nucleated Red Blood Cells % 0 %; Platelet Count 43 10^3/cmm (157-399); Red Blood Count 3.69 10^6/uL (3.85-5.65)
[2023-07-06 10:28] LABS: Neutrophils # 0.38 10^3/uL (1.8-7.7); White Blood Count 0.81 10^3/uL (3.29-11.43)
[2023-07-06] MEDS: filgrastim-sndz 480 mcg/0.8 mL Syringe SUBCUT (11:04)
--- NOTE | 2023-07-06 11:08 | ONCRAD TMN_ITS ---
Radiation Oncology Weekly Treatment Management Patient: Fredrick Nathan MR#: [id number] : 1955 Attending Physician: Pavan Poole Date of Service: 07/06/2023 Referring Physician(s) : Diagnosis: C34.91 - Malignant neoplasm of unspecified part of right bronchus or lung, Diagnosed 04/23/2023 (Active) Radiotherapy to date: Course: Lung 2022, Treatment Site: RT Lung, Ref. ID: [id number], Energy: 6X, Dose/Fx (cGy): 200, #Fx: , Dose Correction (cGy): 0, Total Dose (cGy): 4,600, Start Date: 05/31/2023, Elapsed Days: 36 Reason for visit: The patient is being seen today as part of their regularly scheduled weekly on treatment visits to assess for acute toxicities from radiotherapy. Review of Systems: He says that breathing has been a little tighter this past week. He has had no change in cough. No purulent sputum production and no hemoptysis. He has an albuterol inhaler and a rescue inhaler. He misplaced the rescue inhaler a couple of days ago and cannot find it. He has a co-pay on his medications and I told him that he may have to pay full ma if he goes to get a refill early. He will continue looking for the inhaler. He has had no marked respiratory distress. Dr. Steinberg lowered his Lasix dose to 10 mg daily last week because of a BP of 97/67. Today his BP is 109/68 and he has not developed any peripheral edema. He is doing okay with eating and swallowing. Vital Signs: Performed on 07/06/2023 9:11 AM BMI - 22.808 kg/m2, Height - 68 in, Weight - 150 lbs, Temperature - 97.2 f, Pulse - 97 /min, Respiration - 17 /min, O2 Sat - 98 %, Pain - 1, Fatigue - 4 and BP - 109/ 68 mm(hg). Physical Exam: Alert, oriented, no acute distress. Breathing is unlabored. His lungs have diffusely decreased breath sounds. Very mild inspiratory rhonchi noted in the left base. Otherwise no rales, rhonchi, or wheezes. Imaging: Radiation therapy imaging related to accurate target localization (i.e. KV, MV and CBCT) was reviewed. Appropriate changes, if any, were made to ensure treatment accuracy. Plan: Continue treatment as planned. Chemotherapy scheduled today. He will continue to search for his rescue inhaler. Signed by: Pavan Poole 07/06/2023 11:07:23 AM
[2023-07-07] MEDS: filgrastim-sndz 480 mcg/0.8 mL Syringe SUBCUT (11:41)
[2023-07-07 11:42] VITALS: BP 87/53; PULSE 102; RESP 20; TEMP 36.6; O2SAT 97
[2023-07-08 14:47] LABS: Basophils # 0.1 10^3/uL (0.0-0.1); Basophils % 2.1 %; Hematocrit 36.2 % (37-53); Lymphocytes # 0.2 10^3/uL (0.8-4.8); Lymphocytes % 4.8 %; Mean Corpuscular HGB Conc 31.5 g/dL (30-55); Mean Corpuscular Hemoglobin 32.1 pg (27-33); Mean Platelet Volume 11.7 fL (7.4-10.4); Monocytes # 0.4 10^3/uL (0.2-0.9); Monocytes % 11.3 %; Neutrophils # 1.84 10^3/uL (1.8-7.7); Neutrophils % 54.9 %; Nucleated Red Blood Cells % 0 %; Platelet Count 42 10^3/cmm (157-399); Red Blood Count 3.55 10^6/uL (3.85-5.65); Red Cell Distribution Width 14.7 % (12.1-15.1); White Blood Count 3.35 10^3/uL (3.29-11.43)
[2023-07-08 15:03] LABS: Alanine Aminotransferase 14 U/L (0-41); Albumin Level 3.7 g/dL (3.5-5.2); Alkaline Phosphatase 67 U/L (40-130); Anion Gap 14.6 (5-19); Aspartate Amino Transferase 16 U/L (0-40); Blood Urea Nitrogen 24 mg/dL (8-23); Carbon Dioxide 33 mmol/L (22-29); Chloride 96 mmol/L (98-107); Globulin 2.6 g/dL (1.3-4.6); Glomerular Filtration Rate 96.7 mL/min (90-130); Glucose 190 mg/dL (65-115); Osmolality Calculated 297 mOsm/kg (285-295); Potassium 4.6 mmol/L (3.5-5.1); Sodium 139 mmol/L (136-145); Total Bilirubin 0.2 mg/dL (0.15-1.2); Total Protein 6.3 g/dL (6.6-8.7)
[2023-07-08 15:57] LABS: Slide Review Slide Review Perform
[2023-07-08 16:38] VITALS: BP 120/78; PULSE 67; RESP 20; TEMP 36.6; O2SAT 98
[2023-07-09] MEDS: filgrastim-sndz 480 mcg/0.8 mL Syringe SUBCUT (11:50)
[2023-07-09 12:00] VITALS: BP 100/67; PULSE 97; RESP 18; TEMP 36.2; O2SAT 92
== END 2023-07-11 23:59 | disposition home or self-care (01) ==
PROVIDERS: Internal Medicine Medical Oncology; Nurse Practitioner Family; PCP Family Medicine; Visit Provider Specialist
DX: Z53.9 Procedure and treatment not carried out, unspecified reason; Z51.0 Encounter for antineoplastic radiation therapy; C34.90 Malignant neoplasm of unspecified part of unspecified bronchus or lung; C34.91 Malignant neoplasm of unspecified part of right bronchus or lung; C34.11 Malignant neoplasm of upper lobe, right bronchus or lung
CPT/HCPCS: 77336; 77386; 80053; 85025; 96372; 99024; 99214; J1642; Q5101

== ENCOUNTER 2023-07-24 16:49 | Emergency (ER) | payer MEDICARE, MEDICAID, SELFPAY ==
[2023-07-24 16:56] VITALS: BP 111/67; PULSE 115; RESP 22; TEMP 37.5; O2SAT 90
--- NOTE | 2023-07-24 17:03 | ECG_ITS ---
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 Measurements Intervals [place] Rate: 108 P: 0 UT: 0 QRS: 102 QRSD: 162 T: 49 QT: 355 QTc: 478 Interpretive Statements SINUS TACHYCARDIA INDETERMINATE AXIS RIGHT BUNDLE BRANCH BLOCK [120+ ms QRS DURATION, UPRIGHT V1, 40+ ms S IN I/aVL/V4/V5/V6] SEPTAL MYOCARDIAL INFARCTION , OF INDETERMINATE AGE [40+ ms Q WAVE IN V1/V2] Compared to ECG 06/12/2023 05:02:37 Indeterminate axis now present Sinus tachycardia no longer present Right-axis deviation no longer present Myocardial infarct finding still present Electronically Signed On 07-26-2023 7:56:53 VARITYPE OPERATOR by Ivan Alvarez M.D. [id number]
--- NOTE | 2023-07-24 17:03 | XRR_ITS ---
PROCEDURE INFORMATION: Exam: XR Chest Exam date and time: 07/24/2023 5:22 PM Age: 67 years old Clinical indication: Dyspnea; Patient HX: SOB; RT lung CA; Copd; RT port placement TECHNIQUE: Imaging protocol: Radiologic exam of the chest. Views: 1 view. COMPARISON: 1. CT angio chest PE protcl [id number] 06/10/2023 10:57 PM 2. CR (CHEST, ) 06/10/2023 9:44 PM FINDINGS: Tubes, catheters and devices: Right chest port terminates at the lower SVC. Lungs: Left basilar linear atelectasis versus scarring. No consolidation. Pleural spaces: Unremarkable. No pleural effusion. No pneumothorax. Heart/Mediastinum: Stable cardiomegaly. Vasculature: Aortic and left carotid atherosclerotic calcification. Diaphragm: Asymmetric elevation of the left hemidiaphragm, stable. Bones/joints: Mild levoconvex spinal curvature. Other findings: Mild right hilar fullness corresponding to abnormal finding better seen on comparison CT. XR/XR chest 1V portable [id number] IMPRESSION: No acute findings.
--- NOTE | 2023-07-24 17:29 | W.ED.SOB ---
HPI - SOB/Dyspnea General: Chief Complaint: Shortness of Breath/Dyspnea Stated Complaint: SOB Time Seen by Provider: 07/24/23 17:02 History of Present Illness: HPI Narrative: 67-year-old male presents emergency department via EMS personnel with complaints of shortness of breath. He states he has become increasingly shortness of breath with exertion over the previous 3 days. He states he has a history of COPD and lung cancer and is currently getting radiation and chemotherapy. He states he has had a wet sounding but productive cough for the same duration of time. He states that he is coughing up a greenish yellow-colored phlegm. EMS personnel state they did give him an albuterol treatment and the patient took an albuterol treatment prior to their arrival. He normally wears home oxygen at 3 L nasal cannula and has not had an increase in oxygen requirement. He denies chest pain, dizziness lightheaded feeling nausea or vomiting. He denies fevers chills or night sweats at present. Review of Systems General: Reports: 10 or more systems reviewed and unremarkable except in HPI and below Resp: Reports: dyspnea and productive cough PFSH ED PFSH: Medical History CHF (congestive heart failure), NYHA class III COPD (chronic obstructive pulmonary disease) Emphysema lung Erectile dysfunction Pulmonary hypertension Squamous cell carcinoma of lung Surgical History Port-A-Cath in place Insertion of right IJ Qxcq-X-[id number]- Dr Beltrán 06/01/23 S/P hip replacement Social History Smoking and tobacco/nicotine status: former use of tobacco/nicotine Quit status (tobacco/nicotine): has quit using Year quit tobacco: Former quit date comment: smoked 20-30 years Alcohol intake: current Alcohol intake frequency: 0-2 Drinks per Day Alcohol type: hard liquor Substance/Drug Use: current Substance/Drug use frequency: few times a week Physical Exam Narrative: EXAM NARRATIVE: Constitutional: the patient appears well nourished and of normal development. Vital signs as documented. No acute distress at present. Alert and oriented-to person, place, time and situation. Head, eyes, ears, nose, mouth, throat: Normocephalic, atraumatic. Pupils-equal, round, reactive to light. No scleral icterus. Normal-appearing external ears. Normal appearing nasal turbinates, no drainage. No obvious oral lesions, posterior oropharynx without erythema or exudates. Neck: Supple, trachea is midline, no lymphadenopathy, no jugular venous distension, thyromegaly, or carotid bruits. Carotid upstrokes are brisk bilaterally. Lungs: Coarse throughout right greater than the left. Symmetrical rise and fall of chest, mild increased work of breathing at present. Cardiac: Atrial flutter, positive S1, S2. No murmurs, rubs or gallops that I can appreciate Abdomen: Soft, non-tender to palpation, normal active bowel sounds to all quadrants. No palpable masses, no organomegaly and abdominal bruits. Extremities: 2+ pulses in the upper extremities that are equal bilaterally, 2+ pulses in the lower extremities that are equal bilaterally. Non-edematous. Moves all extremities well, sensation to all extremities are noted. Skin: Warm, dry, intact. Course Reevaluation(s): Reevaluation #1: Patient's oxygen saturation on his home dose of supplemental oxygen has remained 90 and 91%. I will provide him discharge instructions and E scribed prescriptions for him. Time: 21:36 Vital Signs: Vital signs: Vital Signs Temperature 99.5 F 07/24/23 16:56 Pulse Rate 107 H 07/24/23 17:56 Respiratory Rate 24 H 07/24/23 17:56 Blood Pressure 131/76 07/24/23 17:56 Pulse Oximetry 97 07/24/23 17:56 Oxygen Delivery Me thod Room Air 07/24/23 17:56 Oxygen Flow Rate 4 07/24/23 16:56 MDM - SOB/Dyspnea Medical Decision Making 67-year-old male with a history of COPD and lung cancer currently getting chemo and radiation therapy presents with increased shortness of breath. We will obtain a chest x-ray, a CBC, CMP, serial cardiac enzymes and serial twelve-lead EKGs for evaluation. We will obtain a influenza and COVID swab as well. Medical Records I reviewed the patient's medical records. Lab Data I reviewed the patient's lab results. 07/24/23 17:17 07/24/23 17:17 Labs/Radiology: Radiology Impressions Chest X-Ray 07/24/23 17:03 IMPRESSION: No acute findings. Chest CTA 07/24/23 19:44 IMPRESSION: 1. No evidence of pulmonary embolus. 2. Smaller 3.9 cm right perihilar malignant mass. This is consistent with some response to therapy. 3. Prominent right hilar lymph nodes, suspicious for metastatic disease. 4. No acute pulmonary findings. COMMENTS: 1. Consistent with the [employer]'s Incidental Findings Committee white paper (J Am Analilia Radiol 2018): Any incidental renal lesion less than 1 cm or classified as too small to characterize, or any incidental cystic renal lesion characterized as simple-appearing, is likely benign. No follow-up imaging is recommended for these lesions per consensus recommendations based on imaging criteria. 2. The presence of pulmonary emphysema on CT is an independent risk factor for lung cancer. In the absence of a history or active diagnosis of lung cancer, it is recommended that this patient with emphysema be evaluated for enrollment in a low dose CT lung cancer screening program. Laboratory Results WBC 4.49 10^3/uL (3.29-11.43) 07/24/23 17:17 RBC 3.24 10^6/uL (3.85-5.65) L 07/24/23 17:17 Hgb 10.40 g/dL (11.27-16.99) L 07/24/23 17:17 Hct 32.3 % (37-53) L 07/24/23 17:17 MCV 99.7 fl (82-101) 07/24/23 17:17 MCH 32.1 pg (27-33) 07/24/23 17:17 MCHC 32.2 g/dL (30-55) 07/24/23 17:17 RDW 15.0 % (12.1-15.1) 07/24/23 17:17 Plt Count 170 10^3/cmm (157-399) 07/24/23 17:17 MPV 12.0 fL (7.4-10.4) H 07/24/23 17:17 Neut % (Auto) 84.7 % 07/24/23 17:17 Lymph % (Auto) 1.8 % 07/24/23 17:17 [place] % (Auto) 12.7 % 07/24/23 17:17 Eos % (Auto) 0.0 % 07/24/23 17:17 Baso % (Auto) 0.4 % 07/24/23 17:17 Neut # (Auto) 3.80 10^3/uL (1.8-7.7) 07/24/23 17:17 Lymph # (Auto) 0.1 10^3/uL (0.8-4.8) L 07/24/23 17:17 [place] # (Auto) 0.6 10^3/uL (0.2-0.9) 07/24/23 17:17 Eos # (Auto) 0.0 10^3/uL (0.0-0.8) 07/24/23 17:17 Baso # (Auto) 0.0 10^3/uL (0.0-0.1) 07/24/23 17:17 Nucleated RBC % (auto) 0 % 07/24/23 17:17 Nucleated RBCs # 0.0 /100WBC 07/24/23 17:17 PT 15.60 SECONDS (12.1-14.9) H 07/24/23 17:17 INR 1.20 (0.8-1.2) 07/24/23 17:17 Sodium 136 mmol/L (136-145) 07/24/23 17:17 Potassium 4.4 mmol/L (3.5-5.1) 07/24/23 17:17 Chloride 95 mmol/L (98-107) L 07/24/23 17:17 Carbon Dioxide 32 mmol/L (22-29) H 07/24/23 17:17 Anion Gap 13.4 (5-19) 07/24/23 17:17 BUN 20 mg/dL (8-23) 07/24/23 17:17 Creatinine 0.8 mg/dL (0.7-1.2) 07/24/23 17:17 GFR Calculation 96.7 mL/min (90-130) 07/24/23 17:17 Glucose 112 mg/dL (65-115) 07/24/23 17:17 Calculated Osmolality 285 mOsm/kg (285-295) 07/24/23 17:17 Calcium 8.6 mg/dL (8.5-10.5) 07/24/23 17:17 Total Bilirubin 0.7 mg/dL (0.15-1.2) 07/24/23 17:17 AST 14 U/L (0-40) 07/24/23 17:17 ALT 14 U/L (0-41) 07/24/23 17:17 Alkaline Phosphatase 63 U/L (40-130) 07/24/23 17:17 Troponin T Baseline 32 ng/L (0-15) H 07/24/23 17:17 Troponin T 120 Minute 31.08 ng/L (0-15) H 07/24/23 19:11 Delta Troponin T -0.92 ABS# (0-10) L 07/24/23 19:11 NT-Pro-B Natriuret Pep 1058 pg/mL (0-125) H 07/24/23 17:17 Total Protein 6.1 g/dL (6.6-8.7) L 07/24/23 17:17 Albumin 3.8 g/dL (3.5-5.2) 07/24/23 17:17 Globulin 2.3 g/dL (1.3-4.6) 07/24/23 17:17 All radiology interpretation(s) finalized by discharge EKG Data EKG 1: Interpretation: Twelve-lead EKG obtained at 12/26/2020 and reviewed at 1721 demonstrates a ventricular rate of 108 bpm, QRS duration 162, QT 355, QTc 419. It demonstrates a right bundle branch block with atrial flutter/tachycardia with rapid ventricular response. Discharge Plan Discharge Patient Disposition: Home Clinical Impression: COPD exacerbation, Cough Condition: Stable Prescriptions: New azithromycin [Zithromax TRI-KARLO] 500 mg tablet See Rx Instructions .ROUTE .COMPLEX Qty: 3 0RF Rx Instructions: For 250 mg dose pack: take 500 mg today (day 1), then 250 mg for 4 days (days 2-5) prednisone 20 mg tablet 40 mg PO DAILY 5 Days Qty: 20 0RF No Action albuterol sulfate 2.5 mg /3 mL (0.083 %) solution for nebulization 2.5 mg inhalation Q4H PRN (Reason: Wheezing) sildenafil [Viagra] 100 mg tablet 100 mg PO DAILY PRN (Reason: sexual dysfunction) Rx Instructions: administer 30 minutes to 4 hours before activity Entresto 24-26 mg tablet 1 tab PO BID Qty: 60 0RF atorvastatin 40 mg tablet 40 mg PO DAILY Jardiance 10 mg tablet 10 mg PO DAILY omeprazole 20 mg capsule,delayed release(DR/EC) 20 mg PO DAILY Trelegy Ellipta 100-62.5-25 mcg blister with device 1 inh inhalation DAILY Eliquis 5 mg tablet 2.5 mg PO BID doxycycline hyclate 100 mg tablet 100 mg PO BID Qty: 14 0RF (DME) oxygen mask See Rx Instructions .Route .MEDSUPPLY Qty: 1 0RF Rx Instructions: Oxygen mask and all tubing/supplies buspirone 5 mg tablet 5 mg PO DAILY Qty: 30 0RF trazodone 50 mg tablet 50 mg PO DAILY lorazepam 1 mg tablet 1 mg PO Q8H PRN (Reason: Severe Nausea) Qty: 90 1RF ramelteon 8 mg tablet 8 mg PO .before bed Qty: 30 1RF prochlorperazine maleate [Compazine] 10 mg tablet 10 mg PO Q4H PRN (Reason: Mild Nausea) Qty: 30 3RF Lasix 20 mg tablet 40 mg PO DAILY 30 Days Qty: 30 0RF metoprolol succinate 25 mg tablet extended release 24 hr 25 mg PO DAILY 30 Days Qty: 30 2RF Discharge Orders: Discharge ED (Routine); Ordered 07/24/23 Ordered By: Trent Davis Referrals: Delbert Webster [Primary Care Provider] - Discharge Diet: Advance as tolerated Discharge Activity: Resume usual activity Patient Instructions: Opioid Safety, Pain Management Activity Restrictions/Additional Instructions: Activity Restrictions/Additional Instructions: Thank you for choosing [facility] for your healthcare needs today. Please realize that you were seen in the Emergency Department and that we are providing you with an emergency medical screening exam and this may not be a complete and all inclusive of all the testing and or medical work-up that you may need to determine your ailment or severity of your illness. It is very important that you follow-up as instructed with your Primary care provider or Specialist for additional evaluation and to discuss your medical treatment plan. You may return to the Emergency Department should you have concerns or if your condition changes or worsens in any way. Coding Level of Care Code ED Belt Splicer for Gail Champion
[2023-07-24 17:37] LABS: Basophils % 0.4 %; Hematocrit 32.3 % (37-53); Lymphocytes # 0.1 10^3/uL (0.8-4.8); Lymphocytes % 1.8 %; Mean Corpuscular HGB Conc 32.2 g/dL (30-55); Mean Corpuscular Hemoglobin 32.1 pg (27-33); Mean Corpuscular Volume 99.7 fl (82-101); Monocytes # 0.6 10^3/uL (0.2-0.9); Monocytes % 12.7 %; Neutrophils % 84.7 %; Nucleated Red Blood Cells % 0 %; Platelet Count 170 10^3/cmm (157-399); Red Blood Count 3.24 10^6/uL (3.85-5.65); White Blood Count 4.49 10^3/uL (3.29-11.43)
[2023-07-24 17:56] VITALS: BP 131/76; PULSE 107; RESP 24; O2SAT 97
[2023-07-24 18:03] LABS: Troponin(5th) Baseline 32 ng/L (0-15)
[2023-07-24 18:10] LABS: Alanine Aminotransferase 14 U/L (0-41); Albumin Level 3.8 g/dL (3.5-5.2); Alkaline Phosphatase 63 U/L (40-130); Anion Gap 13.4 (5-19); Aspartate Amino Transferase 14 U/L (0-40); Blood Urea Nitrogen 20 mg/dL (8-23); Calcium 8.6 mg/dL (8.5-10.5); Carbon Dioxide 32 mmol/L (22-29); Chloride 95 mmol/L (98-107); Globulin 2.3 g/dL (1.3-4.6); Glomerular Filtration Rate 96.7 mL/min (90-130); Glucose 112 mg/dL (65-115); NT Pro B Type Natriuretic Pept 1058 pg/mL (0-125); Osmolality Calculated 285 mOsm/kg (285-295); Potassium 4.4 mmol/L (3.5-5.1); Sodium 136 mmol/L (136-145); Total Bilirubin 0.7 mg/dL (0.15-1.2); Total Protein 6.1 g/dL (6.6-8.7)
--- NOTE | 2023-07-24 19:03 | ECG_ITS ---
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 Measurements Intervals [place] Rate: 110 P: 96 CT: 183 QRS: 118 QRSD: 178 T: 63 QT: 362 QTc: 490 Interpretive Statements SINUS TACHYCARDIA RIGHT AXIS DEVIATION [QRS AXIS > 100] RIGHT BUNDLE BRANCH BLOCK [120+ ms QRS DURATION, UPRIGHT V1, 40+ ms S IN I/aVL/V4/V5/V6] Compared to ECG 07/24/2023 17:21:55 Right-axis deviation now present Atrial flutter no longer present Indeterminate axis no longer present Myocardial infarct finding no longer present Electronically Signed On 07-26-2023 8:04:50 BLASTING ENTRY SPECIALIST by Ivan Alvarez M.D. [id number]
[2023-07-24 19:35] LABS: Troponin 5 2HR 31.08 ng/L (0-15); Troponin 5 2HR Delta -0.92 ABS# (0-10)
--- NOTE | 2023-07-24 19:44 | CTR_ITS ---
PROCEDURE INFORMATION: Exam: CTA Chest With Contrast Exam date and time: 07/24/2023 8:44 PM Age: 67 years old Clinical indication: Cough and dyspnea and shortness of breath; Prior surgery; Surgery date: 6+ months; Surgery type: Chest port; Patient HX: Cough with SOB and dyspnea. Elevated base troponin. History of copd, chf, and squamous cell lung cancer. TECHNIQUE: Imaging protocol: Computed tomographic angiography of the chest with contrast. Exam focused on the arteries. 3D rendering (Not supervised by radiologist): MIP and/or 3D reconstructed images were created by the technologist. Radiation optimization: All CT scans at this facility use at least one of these dose optimization techniques: automated exposure control; mA and/or kV adjustment per patient size (includes targeted exams where dose is matched to clinical indication); or iterative reconstruction. Contrast material: OMNI 350; Contrast volume: 72 ml; Contrast route: INTRAVENOUS (IV); COMPARISON: CT angio chest PE protcl [id number] 10/06/2023 22:57 RADIATION DOSE METRICS: Total DLP (mGy-cm): 329.41 FINDINGS: Tubes, catheters and devices: Right Xrwfti-W-Vuyl. Pulmonary arteries: Normal. No pulmonary emboli. Aorta: Unremarkable. No aortic aneurysm. No aortic dissection. Lungs: The right upper lobe perihilar mass with extension into the right hilum has decreased in size, estimated at 3.9 cm. Emphysema. Mild scarring in the right lung apex. Mild dependent atelectasis in the right lower lobe. Pleural spaces: Unremarkable. No pneumothorax. No pleural effusion. Heart: Heart size is normal. Coronary arteries: Coronary artery calcifications. Lymph nodes: Prominent right hilar lymph nodes measuring up to 1.6 cm. Kidneys and ureters: Left renal cortical cyst, Hounsfield units less than 20. No follow-up imaging recommended. Adrenal glands: Stable fullness of the bilateral adrenal glands with no discrete nodule, most consistent with hyperplasia. Bones/joints: Mild degenerative changes of the spine. No acute fracture. Soft tissues: Mild gynecomastia. CT/CT angio chest PE protcl [id number] IMPRESSION: 1. No evidence of pulmonary embolus. 2. Smaller 3.9 cm right perihilar malignant mass. This is consistent with some response to therapy. 3. Prominent right hilar lymph nodes, suspicious for metastatic disease. 4. No acute pulmonary findings. COMMENTS: 1. Consistent with the [employer]'s Incidental Findings Committee white paper (J Am Analilia Radiol 2018): Any incidental renal lesion less than 1 cm or classified as too small to characterize, or any incidental cystic renal lesion characterized as simple-appearing, is likely benign. No follow-up imaging is recommended for these lesions per consensus recommendations based on imaging criteria. 2. The presence of pulmonary emphysema on CT is an independent risk factor for lung cancer. In the absence of a history or active diagnosis of lung cancer, it is recommended that this patient with emphysema be evaluated for enrollment in a low dose CT lung cancer screening program.
[2023-07-24] MEDS: iohexol 350 mg/mL 500 mL Btl (per mL) IV (20:46)
[2023-07-24 22:15] VITALS: BP 103/59; PULSE 115; RESP 22; O2SAT 90
[2023-07-24] MEDS: methylPREDNISolone sod succ 125 mg/2 mL INJ 60 MG IVP (22:18)
== END 2023-07-24 22:38 | disposition home or self-care (01) ==
PROVIDERS: Emergency Provider Internal Medicine; PCP Family Medicine
DX: J44.1 Chronic obstructive pulmonary disease with (acute) exacerbation (principal); R05.9 Cough, unspecified; Z79.01 Long term (current) use of anticoagulants; C34.90 Malignant neoplasm of unspecified part of unspecified bronchus or lung; Z79.60 Long term (current) use of unspecified immunomodulators and immunosuppressants; I50.9 Heart failure, unspecified; Z87.891 Personal history of nicotine dependence
CPT/HCPCS: 36415; 71045; 71275; 80053; 83880; 84484; 85025; 85610; 93005; 96374; 99285; J2930; Q9967

== ENCOUNTER 2023-07-27 08:37 | Outpatient (CLI) | payer MEDICARE, MEDICAID, SELFPAY ==
--- NOTE | 2023-07-27 08:30 | CT_ITS ---
WS: [id number] CT chest w con* [id number] HISTORY: surveillance TECHNIQUE: Axial imaging performed through the thorax. Coronal and sagittal reformats are submitted. All CT scans at [facility] use at least one of these dose optimization techniques: automated exposure control; mA and/or kV adjustment per patient size (includes targeted exams where dose is mat ched to clinical indication); or iterative reconstruction. CONTRAST: Omnipaque 350; 100 mL IV. DLP: 264.21 mGy.cm COMPARISON: 07/24/2023 Lungs and central airway: Hyperexpanded lungs with emphysema. There is continued slow improvement in the neoplasm centered at the RIGHT hilum as compared to 06/10/2023. Patient also underwent a recent C T angiogram on 07/24/2023. Soft tissue masses largest in the RIGHT suprahilar region measuring 2.6 x 1 .8 cm with partial encasement and obstruction of the RIGHT upper lobe bronchus. Soft tissue mass cent ered at the hilum and extending in the infrahilar and interlobar location has significantly improved. Additional small nodules in the periphery of the RIGHT upper lobe have improved since 06/10/2023. No new mass or enlarging mass. Pleura: Normal. No pleural effusion. Heart and pericardium: Normal size heart. Mediastinum and mark: Small mediastinal and hilar lymph nodes. Lymph nodes are not increasing in size . Vessels: Mild atherosclerosis aorta. No aneurysm. Normal size pulmonary artery. Chest wall and lower neck: Bilateral gynecomastia. RIGHT central line. Upper abdomen: Small hiatal hernia. Mild adrenal hyperplasia. Osseous structures: No destructive process. IMPRESSION: 1. Moderate improvement in the RIGHT hilar opacification/neoplasm since 06/10/2023. Largest residual mass in the RIGHT suprahilar region measures 2.6 x 1.8 cm. 2. Persistent encasement of the RIGHT upper lobe bronchus with peripheral pulmonary nodules but also improving. 3. No change in the small mediastinal and hilar lymph nodes otherwise. No new mass. 4. Chronic emphysema. 5. Mild adrenal hyperplasia.
[2023-07-27] MEDS: iohexol 350 mg/mL 500 mL Btl (per mL) IV (09:00)
== END 2023-07-27 08:38 | disposition home or self-care (01) ==
LOC: RAD 08:38
PROVIDERS: PCP Family Medicine; Visit Provider Nurse Practitioner Family
DX: C34.91 Malignant neoplasm of unspecified part of right bronchus or lung (principal); J43.9 Emphysema, unspecified
CPT/HCPCS: 71260; Q9967

== ENCOUNTER 2023-08-11 13:34 | Oncology outpatient (recurring) (ONCR) | payer MEDICARE, MEDICAID, SELFPAY ==
[2023-07-13 09:10] VITALS: BP 97/63; PULSE 74; RESP 16; TEMP 36.6; O2SAT 92
[2023-07-13 09:18] LABS: Hematocrit 36.8 % (37-53); Mean Corpuscular HGB Conc 32.3 g/dL (30-55); Mean Corpuscular Hemoglobin 32.1 pg (27-33); Mean Corpuscular Volume 99.2 fl (82-101); Mean Platelet Volume 11.5 fL (7.4-10.4); Platelet Count 92 10^3/cmm (157-399); Positive C 1; Positive M 1; Red Blood Count 3.71 10^6/uL (3.85-5.65); Red Cell Distribution Width 14.7 % (12.1-15.1); White Blood Count 6.14 10^3/uL (3.29-11.43)
[2023-07-13 09:38] LABS: Alanine Aminotransferase 12 U/L (0-41); Albumin Level 3.9 g/dL (3.5-5.2); Alkaline Phosphatase 75 U/L (40-130); Anion Gap 10.8 (5-19); Aspartate Amino Transferase 20 U/L (0-40); Blood Urea Nitrogen 20 mg/dL (8-23); Calcium 9.7 mg/dL (8.5-10.5); Carbon Dioxide 39 mmol/L (22-29); Chloride 92 mmol/L (98-107); Globulin 2.9 g/dL (1.3-4.6); Glomerular Filtration Rate 96.7 mL/min (90-130); Glucose 117 mg/dL (65-115); Osmolality Calculated 290 mOsm/kg (285-295); Potassium 3.8 mmol/L (3.5-5.1); Sodium 138 mmol/L (136-145); Total Bilirubin 0.3 mg/dL (0.15-1.2); Total Protein 6.8 g/dL (6.6-8.7)
[2023-07-13 10:07] LABS: Slide Review Slide Review Perform
[2023-07-13 10:08] LABS: Total Cells Counted 100 (0-100)
[2023-07-13 10:15] LABS: Absolute Segmented Neutrophil 3.4 10/cmm (1.6-7.1); Band Neutrophils Absolute 0.2 10^3/cmm (0.0-1.2); Eosinophils 0 %; Lymphocytes 16 %; Monocytes Absolute 0.2 10^3/cmm (0.1-0.6); Segmented Neutrophils 55 %
[2023-07-13 10:16] LABS: Absolute Neutrophil 3.6 10^3/cmm (1.4-6.5); Anisocytosis 1+; Giant Platelets 2+; Lymphocytes Absolute 1.6 10^3/cmm (1.2-3.4); Ovalocytes 1+; Platelet Estimate Decreased (Normal); Polychromasia 1+
[2023-07-13] MEDS: acetaminophen 325 mg Tablet 650 MG PO (11:05)
[2023-07-13] MEDS: sodium chloride 0.9% 250 ML 75 ML IV (11:05)
[2023-07-13] MEDS: famotidine 20 mg/2 mL INJ IVP (11:07)
[2023-07-13] MEDS: diphenhydrAMINE 50 mg/mL SDV 1mL 25 MG IVP (11:10)
[2023-07-13] MEDS: palonosetron 0.25 mg/5 mL SDV IVP (11:12)
[2023-07-13] MEDS: dexamethasone 20 MG in sodium chloride 0.9% 50 ML 188 MG IV (11:15)
[2023-07-13] MEDS: PACLitaxeL 90 MG in sodium chloride 0.9%(non-DEHP) 250 ML 265 MG IV (11:44)
[2023-07-13] MEDS: CARBOplatin 220 MG in sodium chloride 0.9% 500 ML 522 MG IV (12:53)
--- NOTE | 2023-07-13 13:35 | ONCRAD TMN_ITS ---
Radiation Oncology Weekly Treatment Management Patient: Venita Ramirez MR#: [id number] : 1955> Attending Physician: Jose Steinberg Date of Service: 07/13/2023 Referring Physician(s) : Diagnosis: C34.91 - Malignant neoplasm of unspecified part of right bronchus or lung, Diagnosed 04/23/2023 (Active) Radiotherapy to date: Course: Lung 2022, Treatment Site: RT Lung, Ref. ID: [id number], Energy: 6X, Dose/Fx (cGy): 200, #Fx: 27 / 32, Dose Correction (cGy): 0, Total Dose (cGy): 5,400, Start Date: 05/31/2023, Elapsed Days: 43 Reason for visit: The patient is being seen today as part of their regularly scheduled weekly on treatment visits to assess for acute toxicities from radiotherapy. Review of Systems: Chemo delayed last week due to low counts. Rx Neupegen. CBC done today. No sore throat. Breathing difficult at times. A bit of a non productive cough. Not sleeping well at night. Used Ramelteon with success. Vital Signs: Performed on 07/13/2023 12:55 PM BMI - 22.808 kg/m2, Height - 68 in, Weight - 150 lbs, Temperature - 97.4 f, Pulse - 84 /min, Respiration - 18 /min, O2 Sat - 93 % (low), Pain - 0, Fatigue - 0 and BP - 95/ 63 mm(hg)(/low). Physical Exam: omitted Imaging: Radiation therapy imaging related to accurate target localization (i.e. KV, MV and CBCT) was reviewed. Appropriate changes, if any, were made to ensure treatment accuracy. Plan: Good tolerance of treatment. Renew Ramelteon. Continue treatment as planned. Signed by: Jose Steinberg 07/13/2023 1:33:46 PM Telemedicine Consent Patient seen today via Telemedicine by agreement and consent of patient. Telemedicine technology used during the visit include audio and, as available, review of images. This patient encounter is appropriate and reasonable under the circumstances given the patient???s particular presentation at this time. The patient has been advised of the potential risks and limitations of this mode of treatment (including but not limited to the absence of in-person examination) and has agreed to be treated in a remote fashion in spite of them. Any and all of the patient???s/patient???s family???s questions on this issue have been answered and I have made no promises or guarantees to the patient. The patient has also been advised to contact this office for worsening conditions or problems, and seek emergency medical treatment and/or call 911 if the patient deems either necessary.
[2023-07-13 14:06] VITALS: BP 120/79; PULSE 99; RESP 16; TEMP 37.6
--- NOTE | 2023-07-20 11:22 | ONCRAD TMN_ITS ---
Radiation Oncology Weekly Treatment Management Patient: Fredrick Nathan MR#: [id number] : 1955> Attending Physician: Dr. Opal Foster Date of Service: 07/20/2023 Fractions: 30 out of 32 possible chemotherapy today Referring Physician(s) : Diagnosis: C34.91 - Malignant neoplasm of unspecified part of right bronchus or lung, Diagnosed 04/23/2023 (Active) Radiotherapy to date: Course: Lung 2022, Treatment Site: RT Lung, Ref. ID: [id number], Energy: 6X, Dose/Fx (cGy): 200, #Fx: 30 / 32, Dose Correction (cGy): 0, Total Dose (cGy): 6,000, Start Date: 05/31/2023, Elapsed Days: 50 Reason for visit: The patient is being seen today as part of their regularly scheduled weekly on treatment visits to assess for acute toxicities from radiotherapy. Review of Systems: Patient is doing well. He has had no difficulty swallowing. His appetite remains good. His respiratory status is good. Vital Signs: Performed on 07/20/2023 10:24 AM Height - 68 in, Weight - 145.6 lbs, BMI - 22.139 kg/m2, Temperature - 96.2 f, Pulse - 90 /min, Respiration - 16 /min, O2 Sat - 96 %, Pain - 0, Fatigue - 5 and BP - 99/ 61 mm(hg)(/low). Physical Exam: No changes on physical examination, no skin changes. Imaging: Radiation therapy imaging related to accurate target localization (i.e. KV, MV and CBCT) was reviewed. Appropriate changes, if any, were made to ensure treatment accuracy. Plan: He has 2 treatments remaining. He might get chemotherapy today. He will have his counts checked prior to. Otherwise continue with his treatments as planned. Signed by: Dr. Opal Foster 07/20/2023 11:21:23 AM
[2023-07-20 11:25] VITALS: BP 99/61; PULSE 90; RESP 16; TEMP 35.7; O2SAT 96
[2023-07-20 11:46] LABS: Basophils % 0.5 %; Eosinophils % 0.2 %; Lymphocytes # 0.2 10^3/uL (0.8-4.8); Lymphocytes % 3.6 %; Mean Corpuscular HGB Conc 31.8 g/dL (30-55); Mean Corpuscular Hemoglobin 32.1 pg (27-33); Mean Corpuscular Volume 100.9 fl (82-101); Mean Platelet Volume 11.5 fL (7.4-10.4); Monocytes # 0.7 10^3/uL (0.2-0.9); Monocytes % 11.8 %; Neutrophils # 4.57 10^3/uL (1.8-7.7); Neutrophils % 82.6 %; Nucleated Red Blood Cells % 0 %; Platelet Count 157 10^3/cmm (157-399); Red Blood Count 3.27 10^6/uL (3.85-5.65); Red Cell Distribution Width 14.9 % (12.1-15.1); White Blood Count 5.53 10^3/uL (3.29-11.43)
[2023-07-20 12:06] LABS: Alanine Aminotransferase 15 U/L (0-41); Albumin Level 3.7 g/dL (3.5-5.2); Alkaline Phosphatase 60 U/L (40-130); Anion Gap 12.3 (5-19); Aspartate Amino Transferase 16 U/L (0-40); Blood Urea Nitrogen 16 mg/dL (8-23); Calcium 8.9 mg/dL (8.5-10.5); Carbon Dioxide 34 mmol/L (22-29); Chloride 97 mmol/L (98-107); Globulin 2.7 g/dL (1.3-4.6); Glomerular Filtration Rate 96.7 mL/min (90-130); Glucose 122 mg/dL (65-115); Osmolality Calculated 290 mOsm/kg (285-295); Potassium 4.3 mmol/L (3.5-5.1); Sodium 139 mmol/L (136-145); Total Bilirubin 0.4 mg/dL (0.15-1.2); Total Protein 6.4 g/dL (6.6-8.7)
[2023-07-20] MEDS: sodium chloride 0.9% 250 ML 75 ML IV (12:55)
[2023-07-20] MEDS: acetaminophen 325 mg Tablet 650 MG PO (12:56)
[2023-07-20] MEDS: diphenhydrAMINE 50 mg/mL SDV 1mL 25 MG IVP (12:57)
[2023-07-20] MEDS: famotidine 20 mg/2 mL INJ IVP (12:59)
[2023-07-20] MEDS: palonosetron 0.25 mg/5 mL SDV IVP (13:01)
[2023-07-20] MEDS: dexamethasone 20 MG in sodium chloride 0.9% 50 ML 188 MG IV (13:07)
[2023-07-20] MEDS: PACLitaxeL 90 MG in sodium chloride 0.9%(non-DEHP) 250 ML 265 MG IV (13:44)
[2023-07-20] MEDS: CARBOplatin 220 MG in sodium chloride 0.9% 500 ML 522 MG IV (15:00)
[2023-07-20 16:10] VITALS: BP 103/65; PULSE 92; O2SAT 96
--- NOTE | 2023-07-22 13:31 | N.ONRD TS_ITS ---
Radiation Oncology Treatment Summary Patient: Fredrick Nathan MR#: [id number] : 1955 Age: 67 Sex: Male Dictated by: Dr. Opal Foster Date of Service: 07/22/2023 Referring Physician(s) : Diagnosis: C34.91 - Malignant neoplasm of unspecified part of right bronchus or lung, Diagnosed 04/23/2023 (Active) Radiotherapy to Date: Course: Lung 2022, Treatment Site: RT Lung, Ref. ID: [id number], Energy: 6X, Dose/Fx (cGy): 200, #Fx: 32 / 32, Dose Correction (cGy): 0, Total Dose (cGy): 6,400, Start Date: 05/31/2023, End Date: 07/22/2023, Elapsed Days: 52 Clinical Summary: The patient tolerated RT well. He really did not have any difficulty swallowing. And his weight remains stable. Plan: End of treatment today. Continue on the above medication until the skin reaction resolves. Follow up in one month. Signed by: Dr. Opal Foster>07/22/2023 1:30:06 PM <<Signature on File>>
[2023-08-11 13:36] LABS: Basophils % 0.2 %; Eosinophils % 0.2 %; Hematocrit 31.6 % (37-53); Lymphocytes # 0.5 10^3/uL (0.8-4.8); Lymphocytes % 9.7 %; Mean Corpuscular HGB Conc 30.1 g/dL (30-55); Mean Corpuscular Hemoglobin 31.9 pg (27-33); Mean Platelet Volume 12.2 fL (7.4-10.4); Monocytes # 0.5 10^3/uL (0.2-0.9); Monocytes % 10.1 %; Neutrophils # 3.78 10^3/uL (1.8-7.7); Neutrophils % 79.6 %; Nucleated Red Blood Cells % 0 %; Red Blood Count 2.98 10^6/uL (3.85-5.65); Red Cell Distribution Width 18.5 % (12.1-15.1); White Blood Count 4.75 10^3/uL (3.29-11.43)
[2023-08-11 13:43] LABS: Alanine Aminotransferase 17 U/L (0-41); Albumin Level 3.4 g/dL (3.5-5.2); Alkaline Phosphatase 81 U/L (40-130); Anion Gap 10.7 (5-19); Aspartate Amino Transferase 14 U/L (0-40); Blood Urea Nitrogen 20 mg/dL (8-23); Carbon Dioxide 40 mmol/L (22-29); Chloride 95 mmol/L (98-107); Globulin 2.5 g/dL (1.3-4.6); Glomerular Filtration Rate 112.8 mL/min (90-130); Glucose 119 mg/dL (65-115); Osmolality Calculated 296 mOsm/kg (285-295); Potassium 4.7 mmol/L (3.5-5.1); Sodium 141 mmol/L (136-145); Total Bilirubin 0.3 mg/dL (0.15-1.2); Total Protein 5.9 g/dL (6.6-8.7)
[2023-08-11 14:13] LABS: Slide Review Slide Review Perform
[2023-08-11 14:14] LABS: Platelet Count 25 10^3/cmm (157-399)
[2023-08-11 14:50] LABS: Ferritin 770 ng/mL (30-400); Iron 83 ug/dL (59-158)
[2023-08-11 15:35] VITALS: BP 144/78; PULSE 78; RESP 18; TEMP 36.6; O2SAT 98
[2023-08-16 11:05] LABS: Soluble Transferrin Receptor 1.09 mg/L (0.76-1.76)
== END 2023-08-11 23:59 | disposition home or self-care (01) ==
PROVIDERS: Internal Medicine; Nurse Practitioner Family; PCP Family Medicine; Visit Provider Radiology Radiation Oncology
DX: Z53.9 Procedure and treatment not carried out, unspecified reason (principal); C34.11 Malignant neoplasm of upper lobe, right bronchus or lung; Z79.01 Long term (current) use of anticoagulants; J44.9 Chronic obstructive pulmonary disease, unspecified; Z92.3 Personal history of irradiation; Z79.899 Other long term (current) drug therapy; Z87.891 Personal history of nicotine dependence; I10 Essential (primary) hypertension; E78.5 Hyperlipidemia, unspecified; I48.91 Unspecified atrial fibrillation; Z99.81 Dependence on supplemental oxygen; D70.1 Agranulocytosis secondary to cancer chemotherapy; T45.1X5A Adverse effect of antineoplastic and immunosuppressive drugs, initial encounter
CPT/HCPCS: 36591; 77336; 77386; 80053; 82728; 83540; 84238; 85007; 85025; 96367; 96375; 96413; 96417; 99024; 99214; J1100; J1200; J1642; J2469; J3490; J7040; J7050; J9045; J9267

== ENCOUNTER 2023-08-18 14:35 | Outpatient (CLI) | payer MEDICARE, MEDICAID, SELFPAY ==
--- NOTE | 2023-08-18 15:00 | CTR_ITS ---
PROCEDURE INFORMATION: Exam: CT Abdomen And Pelvis With Contrast Exam date and time: 08/18/2023 3:39 PM Age: 67 years old Clinical indication: Condition or disease; Other: Lung cancer; Prior surgery; Surgery date: 6+ months; Surgery type: Left hip; Additional info: Restaging lung cancer TECHNIQUE: Imaging protocol: Computed tomography of the abdomen and pelvis with contrast. Radiation optimization: All CT scans at this facility use at least one of these dose optimization techniques: automated exposure control; mA and/or kV adjustment per patient size (includes targeted exams where dose is matched to clinical indication); or iterative reconstruction. Contrast material: OMNI 350; Contrast volume: 95 ml; Contrast route: INTRAVENOUS (IV); COMPARISON: CT chest w con* [id number] 07/27/2023 8:49 AM RADIATION DOSE METRICS: Total DLP (mGy-cm): 305.87 FINDINGS: Lungs: Lung bases are clear. No pleural effusion. Liver: Normal. No mass. Gallbladder and bile ducts: Normal. No calcified stones. No ductal dilation. Pancreas: Normal. No ductal dilation. Spleen: Normal. No splenomegaly. Adrenal glands: Normal. No mass. Kidneys and ureters: Normal. No hydronephrosis. Stomach and bowel: Unremarkable. No obstruction. No mucosal thickening. Appendix: No evidence of appendicitis. Intraperitoneal space: Unremarkable. No free air. No significant fluid collection. Vasculature: Unremarkable. No abdominal aortic aneurysm. Lymph nodes: Unremarkable. No enlarged lymph nodes. Urinary bladder: Unremarkable as visualized. Reproductive: Unremarkable as visualized. Bones/joints: A left hip prosthesis is noted and there is expansile lytic mass effect involving the roof of the left acetabulum as well as the proximal portion of the femur. Soft tissues: Unremarkable. CT/CT abdomen pelvis w con* [id number] IMPRESSION: Lytic mass effect involving the left acetabulum and proximal left femur. I have no prior studies for comparison, however this could represent metastatic disease.
[2023-08-18] MEDS: iohexol 350 mg/mL 500 mL Btl (per mL) PO (15:32)
[2023-08-18] MEDS: iohexol 350 mg/mL 500 mL Btl (per mL) IV (16:03)
== END 2023-08-18 14:36 | disposition home or self-care (01) ==
LOC: RAD 14:35
PROVIDERS: PCP Family Medicine; Visit Provider Internal Medicine
DX: D70.1 Agranulocytosis secondary to cancer chemotherapy (principal); T45.1X5A Adverse effect of antineoplastic and immunosuppressive drugs, initial encounter; C34.01 Malignant neoplasm of right main bronchus; C34.91 Malignant neoplasm of unspecified part of right bronchus or lung
CPT/HCPCS: 74177; Q9967

== ENCOUNTER 2023-08-18 15:00 | Oncology outpatient (recurring) (ONCR) | payer MEDICARE, MEDICAID, SELFPAY ==
[2023-08-16 12:34] LABS: Hematocrit 31.1 % (37-53); Lymphocytes # 0.2 10^3/uL (0.8-4.8); Lymphocytes % 4.2 %; Mean Corpuscular HGB Conc 31.5 g/dL (30-55); Mean Corpuscular Hemoglobin 33.3 pg (27-33); Mean Corpuscular Volume 105.8 fl (82-101); Mean Platelet Volume 12.5 fL (7.4-10.4); Monocytes # 0.2 10^3/uL (0.2-0.9); Monocytes % 5.4 %; Neutrophils # 3.85 10^3/uL (1.8-7.7); Neutrophils % 90.2 %; Nucleated Red Blood Cells % 0 %; Platelet Count 43 10^3/cmm (157-399); Red Blood Count 2.94 10^6/uL (3.85-5.65); Red Cell Distribution Width 19.6 % (12.1-15.1); White Blood Count 4.27 10^3/uL (3.29-11.43)
[2023-08-16 13:56] LABS: INR 1.07 (0.8-1.2)
[2023-08-16 13:57] LABS: Partial Thromboplastin Time 26.6 SECONDS (23.9-36.7)
[2023-08-16 14:00] LABS: LAB Peripheral Smear Sent for Review
[2023-08-16 14:03] LABS: Lactate Dehydrogenase 153 U/L (135-225); Thyroid Stimulating Hormone 0.68 uIU/mL (0.27-4.20)
[2023-08-16 14:17] LABS: Hepatitis A Antibody IgM Non-Reactive (Nonreactive); Hepatitis B Core AB, Total Non-Reactive (Nonreactive); Hepatitis B Surface AB < 3.5 (11.5-1000); Hepatitis B Surface Antigen Non-Reactive (Nonreactive); Hepatitis C Virus Antibody Non-Reactive (Nonreactive)
[2023-08-18 15:00] VITALS: BP 120/78; PULSE 78; RESP 18; TEMP 36.6; O2SAT 98
[2023-08-18 16:09] LABS: Zinc Level, Serum or Plasma 66 mcg/dL (60-130)
[2023-08-18 18:59] LABS: Copper Level 140 mcg/dL (70-175)
== END 2023-08-19 23:59 | disposition home or self-care (01) ==
PROVIDERS: Internal Medicine; PCP Family Medicine; Visit Provider Radiology Radiation Oncology
DX: Z45.2 Encounter for adjustment and management of vascular access device; D70.1 Agranulocytosis secondary to cancer chemotherapy; T45.1X5A Adverse effect of antineoplastic and immunosuppressive drugs, initial encounter; C34.01 Malignant neoplasm of right main bronchus; C34.91 Malignant neoplasm of unspecified part of right bronchus or lung
CPT/HCPCS: 36415; 36591; 74177; 82525; 83615; 84443; 84630; 85025; 85610; 85730; 86705; 86706; 86709; 86803; 87340; J1642; Q9967